=== PATIENT | male | born 1945 | race African-American/Black ===

== ENCOUNTER 2017-02-15 06:15 | Inpatient (IN) | payer MEDICARE, OTHER ==
[~2017-02-15] VITALS: Ht 175.3 cm; Wt 46.1 kg
[~2017-02-15 06:15] MED LIST: AMLO10TA2 PO; DOXY100T PO; GUAI600T47 PO; METO25TA4 PO; PRED-220 PO
--- NOTE | 2017-02-15 06:20 | PHYS DOC ---
Past Medical History Past Medical History: Other Additional Past Medical Histor: throat cancer Past Surgical History: Other Additional Past Surgical Histo: trach Alcohol Use: None Drug Use: None Adult General Chief Complaint Chief Complaint: SHORTNESS OF BREATH HPI HPI Patient is a 71 year old -Mauritanian male who presents with trouble swallowing and pain in his mouth. She's been going on for last 2 days. He states his gets radiation therapy every Monday. He states his radiation appointment this Monday with a reassess determine if he needs more. 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 He has a trach and he states he's also feel short of breath that she started this morning. At his long-term they gave him albuterol treatments. He denies any fevers chills nausea or vomiting. He states he's not been eating and drinking much secondary to his difficulties swallowing. He states he's a full code. Review of Systems Review of Systems Constitutional: Denies fever or chills [] Eyes: Denies change in visual acuity, redness, or eye pain [] HENT: Denies nasal congestion or sore throat [] Respiratory: Positive for shortness of breath [] Cardiovascular: No additional information not addressed in HPI [] GI: Denies abdominal pain, nausea, vomiting, bloody stools or diarrhea [] : Denies dysuria or hematuria [] Musculoskeletal: Denies back pain or joint pain [] Integument: Denies rash or skin lesions [] Neurologic: Denies headache, focal weakness or sensory changes [] Endocrine: Denies polyuria or polydipsia [] Current Medications Current Medications Current Medications Medications (Trade) Dose Ordered Sig/Nick Start Time Stop Time Status Last Admin Dose Admin Ondansetron HCl (Zofran) 4 mg PRN Q8HRS PRN 02/15/17 08:00 02/16/17 07:59 UNV Allergies Allergies Allergies Coded Allergies Type Severity Reaction Last Updated Verified No Known Drug Allergies 01/18/17 No Physical Exam Physical Exam Constitutional: Cachectic appearing, no acute distress, non-toxic appearance. [] HENT: Normocephalic, atraumatic, bilateral external ears normal, oropharynx moist, no oral exudates, nose normal. Tender palpation in the submandibular areas bilaterally, no sores appreciated in the oropharynx Eyes: PERRLA, EOMI, conjunctiva normal, no discharge. [] Neck: Normal range of motion, no tenderness, supple, no stridor, trachea in place Cardiovascular:Heart rate regular rhythm, no murmur [] Lungs & Thorax: Bilateral breath sounds decreased bilaterally Abdomen: Bowel sounds normal, soft, no tenderness, no masses, no pulsatile masses. [] Skin: Warm, dry, no erythema, no rash. [] Back: No tenderness, no CVA tenderness. [] Extremities: No tenderness, no cyanosis, no clubbing, ROM intact, no edema. [] Neurologic: Alert and oriented X 3, normal motor function, normal sensory function, no focal deficits noted. [] Psychologic: Affect normal, judgement normal, mood normal. [] Current Patient Data Vital Signs Vital Signs Date Time Temp Pulse Resp B/P (MAP) Pulse Ox O2 Delivery O2 Flow Rate FiO2 02/15/17 07:30 78 18 156/76 (102) 97 02/15/17 07:00 Room Air 02/15/17 06:17 98.5 98.5 Lab Values Laboratory Tests Test 02/15/17 07:05 02/15/17 07:10 White Blood Count 5.9 x10^3/uL (4.0-11.0) Red Blood Count 4.10 x10^6/uL (4.30-5.70) L Hemoglobin 10.2 g/dL (13.0-17.5) L Hematocrit 31.7 % (39.0-53.0) L Mean Corpuscular Volume 78 fL (79-100) L Mean Corpuscular Hemoglobin 25 pg (25-35) Mean Corpuscular Hemoglobin Concent 32 g/dL (31-37) Red Cell Distribution Width 19.8 % (11.5-14.5) H Platelet Count 339 x10^3/uL (140-400) Neutrophils (%) (Auto) 58 % (31-73) Lymphocytes (%) (Auto) 25 % (24-48) Monocytes (%) (Auto) 15 % (0-9) H Eosinophils (%) (Auto) 3 % (0-3) Basophils (%) (Auto) 1 % (0-3) Neutrophils # (Auto) 3.4 x10^3uL (1.8-7.7) Lymphocytes # (Auto) 1.5 x10^3/uL (1.0-4.8) Monocytes # (Auto) 0.9 x10^3/uL (0.0-1.1) Eosinophils # (Auto) 0.2 x10^3/uL (0.0-0.7) Basophils # (Auto) 0.0 x10^3/uL (0.0-0.2) Sodium Level 138 mmol/L (136-145) Potassium Level 4.3 mmol/L (3.5-5.1) Chloride Level 100 mmol/L (98-107) Carbon Dioxide Level 27 mmol/L (21-32) Anion Gap 11 (6-14) Blood Urea Nitrogen 28 mg/dL (8-26) H Creatinine 1.5 mg/dL (0.7-1.3) H Estimated GFR (Cockcroft-Gault) 56.1 Glucose Level 155 mg/dL (70-99) H Calcium Level 9.3 mg/dL (8.5-10.1) Magnesium Level 1.7 mg/dL (1.8-2.4) L Total Bilirubin 0.4 mg/dL (0.2-1.0) Direct Bilirubin 0.2 mg/dL (0.0-0.2) Aspartate Amino Transferase (AST) 21 U/L (15-37) Alanine Aminotransferase (ALT) 16 U/L (16-63) Alkaline Phosphatase 158 U/L (46-116) H Creatine Kinase 120 U/L (39-308) Creatine Kinase MB (Mass) 1.1 ng/mL (0.0-3.6) Creatine Kinase MB Relative Index 0.9 % (0-4) Troponin I Quantitative 0.026 ng/mL (0.000-0.055) JG-Flf-J-Type Natriuretic Peptide 5521 pg/mL (0-124) H Total Protein 7.7 g/dL (6.4-8.2) Albumin 2.8 g/dL (3.4-5.0) L Urine Collection Type Unknown Urine Color Yellow Urine Clarity Clear Urine pH 6.5 Urine Specific Prather 1.015 Urine Protein >=300 mg/dL (NEG-TRACE) Urine Glucose (UA) Negative mg/dL (NEG) Urine Ketones (Stick) Negative mg/dL (NEG) Urine Blood Trace (NEG) Urine Nitrite Negative (NEG) Urine Bilirubin Negative (NEG) Urine Urobilinogen Dipstick 1.0 mg/dL (0.2 mg/dL) Urine Leukocyte Esterase Negative (NEG) Urine RBC Occ /HPF (0-2) Urine WBC 1-4 /HPF (0-4) Urine Squamous Epithelial Cells Occ /LPF Urine Bacteria Pending Laboratory Tests 02/15/17 07:05 Laboratory Tests 02/15/17 07:05 EKG EKG EKG shows sinus rhythm with rate of [address] elevations or concerning T-wave inversions, left axis deviation noted, QTC 442 ms, as interpreted by me. Radiology/Procedures Radiology/Procedures [facility] [address] [place] [address] IMAGING REPORT Signed PATIENT: NICK ORELLANA ACCOUNT: [id number] : 1945 LOCATION: ER AGE: 71 SEX: M EXAM STATUS: REG ER ORD. PHYSICIAN: CHANO HUFF MD REASON: soa PROCEDURE: PORTABLE CHEST 1V EXAM: CHEST 1 VIEW history: Shortness of breath COMPARISON: 01/13/2017 TECHNIQUE: Single portable radiograph of the chest FINDINGS: The cardiac silhouette is unremarkable. The lungs are clear bilaterally. Tracheostomy tube is in place. IMPRESSION: No radiographic evidence of an acute cardiopulmonary process. DICTATED and SIGNED BY: ODALYS PATEL MD DATE: 02/15/17710 CC: CHANO HUFF MD; UNKNOWN PCP NAME ~ Impressions: Shortness breath Dysphagia Metastatic squamous cell of throat Hypertension Course & Med Decision Making Course & Med Decision Making Pertinent Labs and Imaging studies reviewed. (See chart for details) Labs do not show any acute abnormalities, chest x-ray also nonacute. I believe his shortness of breath is secondary to secretions as he is not tachycardic or tachypneic. We had RT come up and do deep suction and they were able to remove some moderate amount of secretions. He's complaining more of not able to swallow foods. He has had a CT scan performed last week and these receiving radiation to his throat every Monday. Spoke with Dr. Mi who wants him AND radiation consult. Patient's agreeable plans being admitted to his time in stable condition. Dragon Disclaimer Dragon Disclaimer This electronic medical record was generated, in whole or in part, using a voice recognition dictation system. Departure Departure Impression: Primary Impression: Dysphagia Disposition: ADMITTED INPATIENT Admitting Physician: Taylor Bradshaw Condition: STABLE Referrals: UNKNOWN PCP NAME (PCP) Problem Qualifiers Primary Impression: Dysphagia Dysphagia type: unspecified Qualified Codes: R13.10 - Dysphagia, unspecified CHANO HUFF MD Feb 15, 2017 06:20
--- NOTE | 2017-02-15 06:40 | EKG ---
[facility] [address] [place] [address] Test Date: 2017-02-15 Test Time: 06:17:26 Pat Name: NICK ORELLAAN Department: Room: Gender: M Director Of Analytics: MALKA : 1945 Requested By: CHANO HUFF Order Number: [id number] Reading MD: Dru Colindres Measurements Intervals [place] Rate: 81 P: 71 OR: 130 QRS: -21 QRSD: 78 T: 64 QT: 380 QTc: 442 Interpretive Statements SINUS RHYTHM LEFTWARD AXIS NON SPECIFIC ST DEPRESSION RI6.01 Unconfirmed report Compared to ECG 01/13/2017 14:14:22 Left-axis deviation now present ST (T wave) deviation now present Electronically Signed On 02-24-2017 12:49:50 CDT by Dru Colindres
[2017-02-15 07:16] LABS: BASO % 1 % (0-3); EOS % 3 % (0-3); HEMATOCRIT 31.7 % (39.0-53.0); HEMOGLOBIN 10.2 g/dL (13.0-17.5); LYMPH # 1.5 x10^3/uL (1.0-4.8); LYMPH % 25 % (24-48); MEAN CORPUSCULAR HEMOGLOBIN 25 pg (25-35); MEAN CORPUSCULAR HGB CONC 32 g/dL (31-37); MEAN CORPUSCULAR VOLUME 78 fL (79-100); MONO % 15 % (0-9); NEUT % 58 % (31-73); PLATELET COUNT 339 x10^3/uL (140-400); RED CELL DISTRIBUTION WIDTH 19.8 % (11.5-14.5); WHITE BLOOD COUNT 5.9 x10^3/uL (4.0-11.0)
--- NOTE | 2017-02-15 07:17 | RAD ---
EXAM: CHEST 1 VIEW history: Shortness of breath COMPARISON: 01/13/2017 TECHNIQUE: Single portable radiograph of the chest FINDINGS: The cardiac silhouette is unremarkable. The lungs are clear bilaterally. Tracheostomy tube is in place. IMPRESSION: No radiographic evidence of an acute cardiopulmonary process.
[2017-02-15 07:32] LABS: CALCIUM 9.3 mg/dL (8.5-10.1); CREATININE 1.5 mg/dL (0.7-1.3); GFR 56.1; POTASSIUM 4.3 mmol/L (3.5-5.1)
[2017-02-15 07:33] LABS: BILIRUBIN,URINE NEGATIVE (NEG); GLUCOSE,URINE NEGATIVE (NEG); NITRITE,URINE NEGATIVE (NEG); PH,URINE 6.5; PROTEIN,URINE >=300 mg/dL (NEG-TRACE)
[2017-02-15 07:38] LABS: ALBUMIN 2.8 g/dL (3.4-5.0); DIRECT BILIRUBIN 0.2 mg/dL (0.0-0.2); MAGNESIUM 1.7 mg/dL (1.8-2.4); TOTAL BILIRUBIN 0.4 mg/dL (0.2-1.0); TOTAL PROTEIN 7.7 g/dL (6.4-8.2)
[2017-02-15 07:45] LABS: RBC,URINE OCC /HPF (0-2); SQUAMOUS EPITHELIAL CELL,UR OCC /LPF
[2017-02-15 07:47] LABS: CKMB MASS 1.1 ng/mL (0.0-3.6)
[2017-02-15] MEDS ORDERED: IV DEXTROSE 5 %-0.45 % NACL 1,000 ML IV ONE (08:00)
[2017-02-15] MEDS ORDERED: ONDANSETRON PF 4 MG/2 ML VIAL. IV PRN (08:00)
[2017-02-15 08:31] LABS: BACTERIA,URINE FEW /HPF (0-FEW)
[2017-02-15 09:20] VITALS: BP 156/88
[2017-02-15 09:21] VITALS: BP 156/88
[2017-02-15 10:33] VITALS: BP 154/85
--- NOTE | 2017-02-15 11:37 | HP ---
ADMIT DATE: 02/15/2017 HISTORY OF PRESENT ILLNESS: The patient is a 71-year-old -Dominican male patient, a resident at [facility], who was brought to the Emergency Room with a complaint of pain in his mouth and difficulty swallowing that has been going on for the last 2 days. He states he gets radiation treatment every Monday and he has radiation appointment this Monday with the plan to reassess whether he needs further treatment. 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 He has a tracheostomy tube and he used to have PEG tube that was removed. He complained also of shortness of breath, started this morning. He denied any fever, chills, nausea or vomiting. He stated that he has not been eating and drinking much secondary to his difficulty swallowing. He continues to be a full code. He was evaluated in the Emergency Room, has had a chest x-ray, which showed no radiographic evidence of an acute cardiopulmonary process. His lab works were all unremarkable and the patient was admitted for further evaluation and treatment. His past medical history is significant for hypertension and poorly differentiated squamous cell carcinoma diagnosed at the [facility] around 06/2016. It was staged at T4N3M1 due to concern for several small pulmonary nodules and extensive adenopathy in the neck. PET scan showed a PET avid left supraglottic mass and also 1 pulmonary nodule that was PET avid. His initial therapy at the OR was 6 weekly cycles of Erbitux, Taxol and carboplatin. He apparently at one point in time elected not to have any further therapy including radiation therapy as it was the palliative situation; however, he was seen at the [facility] and has been receiving radiation therapy every Monday. PAST SURGICAL HISTORY: Significant for tracheostomy tube placement as well as gastrostomy tube placement that was subsequently removed. PAST MEDICAL HISTORY: He apparently has history of depression, posttraumatic stress disorder and seizure disorder. FAMILY HISTORY: Positive for hypertension. SOCIAL HISTORY: He is currently a resident at [facility]. He drinks alcohol occasionally, used to be a smoker and smokes a pack a day. Does not use any drugs. REVIEW OF SYSTEMS: As per history of present illness. MEDICATIONS: He is currently on following medications: Amlodipine besylate 10 mg once a day, Mucinex 600 mg once a day, metoprolol tartrate 25 mg once a day and prednisone 10 mg once a day. PHYSICAL EXAMINATION: GENERAL: On arrival to the Emergency Room, the patient was extremely pale, cachectic, but no jaundice, cyanosis, or thyromegaly. No jugular venous distention. No limb edema. VITAL SIGNS: Her heart rate was 74, blood pressure was 160/77, temperature was 97.7, respiratory rate was 17 and oxygen saturation was 97%. HEAD, EYES, EARS, NOSE AND THROAT: Showed normocephalic, atraumatic. NECK: Supple, with tracheostomy tube, also enlarged left side lymph nodes. HEART: Showed normal first and second heart sounds with no gallop, rub or murmur. CHEST: Shows central trachea, equal bilateral expansion, air entry, vesicular sounds. No crepitation or rhonchi. ABDOMEN: Distended, soft, nontender. No guarding or rigidity. No organomegaly. Hernial orifices intact. Bowel sounds normal. NEUROLOGIC: He was sleepy, but arousable. All cranial nerves intact. EXTREMITIES: He moves extremities without difficulty. He normally ambulates without assistance or assistive devices. LABORATORY DATA: In the Emergency Room showed a serum sodium of 138, potassium 4.3, chloride 100, bicarbonate 27, anion gap of 11, BUN 28, creatinine 1.5, estimated GFR was 56 mL per minute, his glucose 155, calcium was 9.3, magnesium was 1.7. Total bilirubin, AST, ALT were normal. Alkaline phosphatase slightly elevated. His beta natriuretic peptide was 5521. Total protein was 7.7, albumin was 2.8. White cell count was 5900; hemoglobin 10; hematocrit 32; MCV 78 and platelet count of 339,000. His urinalysis was essentially unremarkable. His chest x-ray showed cardiac silhouette which is unremarkable, the lungs are clear bilaterally, tracheostomy tube is in place. 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 Unfortunately, the PEG tube was removed. He is here now complaining of pain in his mouth, difficulty swallowing, has not been able to eat and drink for the last few days because of difficulty swallowing. He also is complaining of shortness of breath. PLAN: My plan is to continue with IV fluid. We will arrange for him to be evaluated by the speech and language pathologist for swallowing evaluation. I will also arrange for him to have a CT scan of the soft tissue of the neck and consult the Radiation Oncology and he might require eventually a placement of another gastrostomy tube for feeding. BLAYNE WAKEFIELD MD DR: SEVERO/marjan JOB#: [id number] / [id number]
--- NOTE | 2017-02-15 11:45 | RAD ---
EXAM: Neck CT without contrast. HISTORY: Difficulty swallowing. TECHNIQUE: Computed tomographic images of the neck were obtained without contrast. One or more of the following individualized dose reduction techniques were utilized for this examination: 1. Automated exposure control. 2. Adjustment of the mA and/or kV according to patient size. 3. Use of iterative reconstruction technique. COMPARISON: 01/18/2017. FINDINGS: There is a heterogeneous mass with areas of internal necrosis within the lateral left neck, measuring approximately 7.7 x 4.4 x 4.1 cm. The margins of this lesion are difficult to assess given the absence of intravenous contrast on this exam. There is destruction of the fascial planes of the lateral left neck and there is overlying skin thickening and stranding within the subcutaneous fat. There are prominent left supraclavicular lymph nodes, the largest of which measures 1.8 cm. There is similar prominent right cervical chain lymph nodes which are nonspecific. There is a tracheostomy device in expected location. There is soft tissue effacement of the right vallecula likely due to the previously demonstrated mass. The margins of this lesion are difficult to assess given the absence of contrast. There is thickening of the vocal cords and periepiglottic stranding which may be due to interval radiation therapy. This nearly completely effaces the airway at the level of the vocal cords. The thyroid gland is unremarkable. There is a 7 mm calcification within the left submandibular gland. The right parotid gland is unremarkable. The aforementioned left neck mass extends to the inferior aspect of the left parotid gland. There is heavily calcified atherosclerotic plaque within the left greater than right carotid bifurcations. There is aortic and aortic arch great vessel atherosclerotic plaque. There is mild pulmonary emphysema. There is a 4 mm noncalcified nodule within the right upper lobe. There is a 7 mm groundglass nodular opacity within the right upper lobe. There is cerebral atrophy. There are areas of hypodensity throughout the cerebral white matter, likely due to chronic small vessel disease. There are calcifications within the globus pallidus bilaterally. There is evidence of lens surgery. There is mild paranasal sinus mucosal thickening. The mastoid air cells are clear. There are degenerative changes throughout the cervical spine, including disc bulges with endplate modeling, osteophytosis and facet and uncovertebral arthropathy. No severe stenosis is seen. No suspicious lytic or sclerotic osseous lesion is seen. IMPRESSION: 1. Soft tissue mass within the right vallecula likely due to known primary malignancy. This is similar compared to the prior study, allowing for limitations on the current exam due to the absence of intravenous contrast. The combination of this finding and new onset thickening of the vocal cords and periepiglottic stranding results in near complete effacement of the airway at the level of the vocal cords. This may be due to interval radiation therapy. There is a tracheostomy device in expected position. 2. 7.7 cm heterogeneous mass with areas of internal necrosis within the left neck, likely due to necrotic metastatic lymphadenopathy. This appears slightly increased compared to the prior study, a component of which may be due to the absence of intravenous contrast on the current exam. 3. Prominent left supraclavicular and right cervical chain lymph nodes, nonspecific and possibly reactive in etiology. PET may be useful to assess the extent of metastatic disease. 4. 4 mm pulmonary nodule within the right upper lobe. The slight interval increase in this lesion compared to the prior study is concerning for a tiny metastasis. There is also been interval increase in a 7 mm groundglass opacity within the right upper lobe which may be postinflammatory, postinfectious or neoplastic in etiology.
--- NOTE | 2017-02-15 12:46 | PDOC ---
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 Previous chemo with initial response followed by palliative radiation at the time of local progression at CT. He received 30 Gy in 10 fx completed 02/10/2017. Resident at [facility]. Admitted now for cough with difficult to manage secretions sore throat and diminished oral intake. Currently somnolent and does not neck and swallowing pain. PE Thin in NAD. Unable to open mouth well for inspection. Neck tracheostomy on place, no stridor. Upper neck skin tanning 5 x 5 cm fixed hard non-tender left neck mass. Abd ok, previous PEG absent. CT today compared to previous CT done here 01/18/2017 Left neck mass 4.5 x 4.5 cm and rt supraglottic mass 2.5 x 3.5 cm both unchanged. CXR Unremarkable CBC ok with Hb 10.2 Chemistries ok with alk p 158 Impression: Locally advanced (and previously metastatic) squamous cell carcinoma of supraglottic larynx He has just completed palliative radiation at the CT. He now has radiation oral cavity mucositis cervical esophagitis. Too early to assess treatment response as he completed treatment only 5 days ago. Recommend: Continue IV fluids. Add IV analgesic therapy prn. Agree with speech path for swallowing assessment. Consider adding nystatin swish and swallow to prophylactically cover for secondary yeast infection if present. He may require replacement of PEG tube and may need hospice support at [place] following [place]. GRANT NICHOLSON MD Feb 15, 2017 12:46
[2017-02-15 14:31] VITALS: BP 158/91
[2017-02-15] MEDS: HEPARIN PF for SUB-Q USE 5,000 UNIT/0.5 ML VIAL. SQ SCH ×2 (15:06→21:13)
[2017-02-15] MEDS: fentaNYL PF VIAL 100 MCG/2 ML VIAL IV PRN (17:10)
[2017-02-15 19:05] VITALS: BP 158/72
[2017-02-15] MEDS: IPRATRPIUM/ALBUTEROL 0.5/2.5MG 3 ML NEBU. NEB SCH (19:05)
[2017-02-15] MEDS ORDERED: ACET500T68 PO (19:14)
[2017-02-15] MEDS ORDERED: INSU100I17 SQ (19:14)
[2017-02-15] MEDS ORDERED: OXYC10TA45 PO (19:14)
[2017-02-15] MEDS ORDERED: DOCU-109 PO (19:14)
[2017-02-15 23:40] VITALS: BP 145/76
--- NOTE | 2017-02-16 00:38 | CONS ---
DATE OF CONSULTATION: 02/15/2017 MEDICAL ONCOLOGY CONSULTATION CONSULTATION REQUESTED BY: Taylor Bradshaw MD REASON FOR CONSULTATION: Laryngeal cancer on radiation therapy, now admitted with dyspnea and dysphagia. HISTORY OF PRESENT ILLNESS: The patient is a 71-year-old -Turkish gentleman who was initially evaluated at the [facility] in May 2016 for dyspnea and a mass in his neck. He was seen by ENT who noted that he had airway compromise from the tumor. A CT scan in May 2016 revealed a mass in the supraglottic larynx extending to the base of the tongue with cervical and supraclavicular adenopathy and bilateral pulmonary nodules consistent with likely metastatic disease. A followup PET CT scan confirmed increased activity in the neck, lung nodules, and bilateral effusions in June 2016. Biopsy of the larynx and base of the tongue in June 2016 revealed squamous cell carcinoma. He was seen by Medical Oncology at the [facility] and he received 6 cycles of chemotherapy with carboplatin, Taxol and cetuximab and he had an excellent response. He had a tracheostomy placement and PEG tube placement at that time. PEG tube was subsequently removed. He was offered radiation therapy, but he declined at that time. He was recently admitted to [facility] in December 2016 and he was noted to have an enlarging mass in the left side of his neck associated with pain. Radiation Oncology was consulted and he was started on radiation therapy. Chemotherapy was not offered due to poor performance status. He is now admitted to the hospital with complaints of dysphagia and dyspnea. Chest x-ray was done that was unremarkable. PAST MEDICAL HISTORY: Remarkable for alcohol abuse, depression, posttraumatic stress disorder, seizures due to alcohol withdrawal, and history of hypertension. SOCIAL HISTORY: He is . He has a history of cigarettes smoking and alcohol abuse. FAMILY HISTORY: Negative for head and neck cancer. REVIEW OF SYSTEMS: A 12-point review of system was performed. Pertinent positives are mentioned in the history of present illness. Rest of the system review is negative. PHYSICAL EXAMINATION: GENERAL APPEARANCE: The patient is a 71-year-old -Turkish gentleman who appears poorly nourished and in no acute cardiorespiratory distress. VITAL SIGNS: Blood pressure 156/88, temperature 97.7. HEAD: Atraumatic, normocephalic. EYES: No icterus. NECK: Supple. Mass noted. CHEST: Bilaterally symmetrical. HEART: S1, S2 normal. ABDOMEN: Soft, nontender. CENTRAL NERVOUS SYSTEM: No focal deficits. MUSCULOSKELETAL: No joint effusions. PSYCHOLOGIC: He has a flat affect. LABORATORY DATA: WBC 5.9, hemoglobin 10.2, platelet count 339. Creatinine 1.5. BNP is 5521, alkaline phosphatase is 158. IMPRESSION AND PLAN: 1. 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 He declined radiation therapy at that time. He had evidence of enlarging mass in the neck in December 2016 and he was started on radiation therapy by Dr. Beavers. Continue radiation treatments. I will consult Dr. Beavers for further evaluation. He is not a candidate for chemotherapy because of poor functional status. 2. Dyspnea. Chest x-ray performed on 02/15/2017 does not reveal any acute cardiomyopathy process. His BNP is elevated. Continue management per Dr. Bradshaw. 3. 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 Await Radiation Oncology consultation. LEONOR BOWERS MD DR: DAVIDE/nts JOB#: [id number] / [id number] WAYNE
[2017-02-16 03:39] VITALS: BP 151/67
[2017-02-16] MEDS: HEPARIN PF for SUB-Q USE 5,000 UNIT/0.5 ML VIAL. SQ SCH ×2 (05:17→14:00)
[2017-02-16 06:52] VITALS: BP 162/91
[2017-02-16 07:04] LABS: BASO % 0 % (0-3); EOS % 1 % (0-3); HEMATOCRIT 31.8 % (39.0-53.0); HEMOGLOBIN 10.3 g/dL (13.0-17.5); LYMPH % 11 % (24-48); MEAN CORPUSCULAR HEMOGLOBIN 25 pg (25-35); MEAN CORPUSCULAR HGB CONC 33 g/dL (31-37); MEAN CORPUSCULAR VOLUME 77 fL (79-100); MONO % 10 % (0-9); NEUT % 78 % (31-73); PLATELET COUNT 337 x10^3/uL (140-400); RED BLOOD COUNT 4.15 x10^6/uL (4.30-5.70); WHITE BLOOD COUNT 9.2 x10^3/uL (4.0-11.0)
[2017-02-16 07:05] LABS: ALBUMIN 2.5 g/dL (3.4-5.0); ALBUMIN/GLOBULIN RATIO 0.5 (1.0-1.7); CALCIUM 9.1 mg/dL (8.5-10.1); CREATININE 1.3 mg/dL (0.7-1.3); GFR 66.2; TOTAL BILIRUBIN 0.6 mg/dL (0.2-1.0); TOTAL PROTEIN 7.9 g/dL (6.4-8.2)
[2017-02-16] MEDS: IPRATRPIUM/ALBUTEROL 0.5/2.5MG 3 ML NEBU. NEB SCH ×4 (07:42→20:14)
[2017-02-16 11:05] VITALS: BP 163/79
--- NOTE | 2017-02-16 12:45 | CONS ---
DATE OF CONSULTATION: 02/15/2017 REFERRING PHYSICIAN: Dr. Taylor Bradshaw. 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 In the past, he had 6 cycles of carboplatin and Taxol at the [facility] with rituximab and had an excellent response with resolution of his disease. Prior to initiating chemotherapy, he had a PEG tube placement. He then developed local disease progression and underwent 30 Gy of palliative radiation therapy to the neck and primary site region at the [facility] completed on 02/10/2017. He has now been admitted from his fdc as a result of mouth and swallowing pain and difficulty with secretions. Following treatment with systemic treatment and excellent treatment response, his PEG tube was removed. At diagnosis, he has had tracheostomy placement, which remains present to this time. He is currently minimally conversant and lethargic, but does complain of oral cavity and throat and swallowing pain. He was transferred from the [facility] to the Emergency Room here and subsequently admitted for further assessment. Chest x-ray on admission revealed no acute cardiovascular findings with specifically no evidence for metastatic disease. CBC on admission included a hemoglobin of 10.2, white count of 5900, platelet count of 339,000. Chemistry panel was within normal limits with an alkaline phosphatase of 158. Following admission, he did undergo a CT scan, which I have reviewed and compared to the previous CT scan obtained here on 01/18/2017. Left neck adenopathy was unchanged in size and measured approximately 4.5 x 4.5 cm. Right supraglottic mass remained unchanged in size measuring 2.5 x 3.5 cm. No new findings were noted. Currently, he is receiving IV fluids with a plan to undergo swallowing assessment by speech pathology and supportive care. PAST MEDICAL HISTORY: Remarkable for alcohol abuse, posttraumatic stress disorder, depression, previous alcohol withdrawal seizures in the past, hypertension. FAMILY HISTORY: Not obtained. ALLERGIES: No known allergies. MEDICATIONS: Prior to admission included amlodipine, Mucinex, metoprolol, prednisone. SOCIAL HISTORY: for many years, one 50-year-old daughter living in [place]. He worked in the , saw action in [place] and has a prior history of significant alcohol and tobacco use. PHYSICAL EXAMINATION: GENERAL: Revealed subdued, somewhat somnolent gentleman appearing older than his chronologic age. He was unable to open his mouth well for careful inspection. LYMPH NODES: He had a fixed 5 x 5 cm left upper neck hard mass consistent with unchanged adenopathy, surrounding this was some tanning of the skin with no desquamation or peeling. He had no inferior left cervical or right cervical or supraclavicular adenopathy elsewhere. Tracheostomy was in place and functioning well. ABDOMEN: Unremarkable. PEG tube was absent. EXTREMITIES: Revealed no clubbing, cyanosis or edema. NEUROLOGIC: He had no focal neurologic deficits. ASSESSMENT AND PLAN: In summary, my impression is that of stage IV (T4N3M1) squamous cell carcinoma of the supraglottic larynx, initial chemotherapy provided excellent treatment response. Following this, he had local disease relapse and has recently completed palliative radiation to 30 Gy in 10 fractions completed on 02/10/2017 at the [facility] in [place], [place]. He is now admitted with acute oral cavity mucositis and esophagitis by history, which is common following treatment at this site. I recommend ongoing IV fluid support, IV pain medication as needed. Speech pathology evaluation is scheduled for swallowing assessment once he is awake. It may be rational to add prophylactic nystatin swish and swallow to cover for any secondary candidal infection. Depending on his status over the next days ahead, replacement of the PEG tube may be a consideration to give him chronic nutritional and hydration support. Following stabilization, there may be a role for hospice support on discharge to his fdc as well. I did not see a role for additional radiation as he has had only 1 week since completing treatment and it is premature to assess for treatment response at this time. Thank you for allowing us to participate in his evaluation. We will continue to follow him along during his hospitalization here. GRANT NICHOLSON MD DR: CHI/marjan JOB#: [id number] / [id number] Jose Yen VINAY MD
--- NOTE | 2017-02-16 14:32 | PDOC2 ---
GI CONSULT Reason For Consult: PEG HPI: HPI: 71 y/o male w/ Stage IV SCC of larynx w/ lymph node involvement and lung mets diagnosed in 06/2016, s/p chemo w/ local disease relapse and then palliative radiation, tracheostomy, and previous PEG placement/removal. Admitted now from [facility] w/ mouth pain and difficulty swallowing. We have been asked to see re: possible PEG placement. He tells me swallowing issues have been bothersome for 3-4 days - can't get anything down. PMH: PMH: per chart and HPI - alcohol abuse/withdrawal seizures, PTSD, depression, HTN FH: Family History: No pertinent hx Social History: Smoke: Quit ALCOHOL: other Drugs: None ROS: GEN: Denies fevers, chills, sweats HEENT: +mouth and throat pain CV: Denies chest pain RESP: +SOA GI: Per HPI : Denies dysuria ENDO: +weight loss NEURO: Denies dizziness MSK: +weakness SKIN: Denies rash Vitals: Vitals: Vital Signs Date Time Temp Pulse Resp B/P (MAP) Pulse Ox O2 Delivery O2 Flow Rate FiO2 02/16/17 11:46 Room Air 02/16/17 11:05 98.4 83 17 163/79 (107) 98 98.4 Labs: Labs: Laboratory Tests Test 02/15/17 17:35 02/15/17 19:05 02/16/17 05:00 Nasal Screen MRSA (PCR) Positive (Negative) Troponin I Quantitative 0.029 ng/mL (0.000-0.055) White Blood Count 9.2 x10^3/uL (4.0-11.0) Red Blood Count 4.15 x10^6/uL (4.30-5.70) Hemoglobin 10.3 g/dL (13.0-17.5) Hematocrit 31.8 % (39.0-53.0) Mean Corpuscular Volume 77 fL (79-100) Mean Corpuscular Hemoglobin 25 pg (25-35) Mean Corpuscular Hemoglobin Concent 33 g/dL (31-37) Red Cell Distribution Width 19.0 % (11.5-14.5) Platelet Count 337 x10^3/uL (140-400) Neutrophils (%) (Auto) 78 % (31-73) Lymphocytes (%) (Auto) 11 % (24-48) Monocytes (%) (Auto) 10 % (0-9) Eosinophils (%) (Auto) 1 % (0-3) Basophils (%) (Auto) 0 % (0-3) Neutrophils # (Auto) 7.1 x10^3uL (1.8-7.7) Lymphocytes # (Auto) 1.0 x10^3/uL (1.0-4.8) Monocytes # (Auto) 0.9 x10^3/uL (0.0-1.1) Eosinophils # (Auto) 0.1 x10^3/uL (0.0-0.7) Basophils # (Auto) 0.0 x10^3/uL (0.0-0.2) Sodium Level 134 mmol/L (136-145) Potassium Level 4.0 mmol/L (3.5-5.1) Chloride Level 99 mmol/L (98-107) Carbon Dioxide Level 25 mmol/L (21-32) Anion Gap 10 (6-14) Blood Urea Nitrogen 16 mg/dL (8-26) Creatinine 1.3 mg/dL (0.7-1.3) Estimated GFR (Cockcroft-Gault) 66.2 BUN/Creatinine Ratio 12 (6-20) Glucose Level 117 mg/dL (70-99) Calcium Level 9.1 mg/dL (8.5-10.1) Total Bilirubin 0.6 mg/dL (0.2-1.0) Aspartate Amino Transf (AST/SGOT) 17 U/L (15-37) Alanine Aminotransferase (ALT/SGPT) 17 U/L (16-63) Alkaline Phosphatase 141 U/L (46-116) Total Protein 7.9 g/dL (6.4-8.2) Albumin 2.5 g/dL (3.4-5.0) Albumin/Globulin Ratio 0.5 (1.0-1.7) Allergies: Coded Allergies: I S O L A T I O N *CONTACT* (Verified Allergy, Unknown, 02/16/17) mrsa No Known Medication Allergies (Verified Allergy, Unknown, 02/16/17) Medications: Current Medications Medications (Trade) Dose Ordered Sig/Nick Route PRN Reason Start Time Stop Time Status Last Admin Dose Admin Albuterol/ Ipratropium (Duoneb) 3 ml RTQID NEB 02/15/17 16:00 02/16/17 11:46 Fentanyl Citrate (Fentanyl 2ml Vial) 50 mcg Q3HRS PRN IV PAIN 02/15/17 15:30 02/15/17 17:10 Imaging: Imaging: CXR 02/14/17 IMPRESSION: No radiographic evidence of an acute cardiopulmonary process. Soft Tissue Neck CT IMPRESSION: 1. Soft tissue mass within the right vallecula likely due to known primary malignancy. This is similar compared to the prior study, allowing for limitations on the current exam due to the absence of intravenous contrast. The combination of this finding and new onset thickening of the vocal cords and periepiglottic stranding results in near complete effacement of the airway at the level of the vocal cords. This may be due to interval radiation therapy. There is a tracheostomy device in expected position. 2. 7.7 cm heterogeneous mass with areas of internal necrosis within the left neck, likely due to necrotic metastatic lymphadenopathy. This appears slightly increased compared to the prior study, a component of which may be due to the absence of intravenous contrast on the current exam. 3. Prominent left supraclavicular and right cervical chain lymph nodes, nonspecific and possibly reactive in etiology. PET may be useful to assess the extent of metastatic disease. 4. 4 mm pulmonary nodule within the right upper lobe. The slight interval increase in this lesion compared to the prior study is concerning for a tiny metastasis. There is also been interval increase in a 7 mm groundglass opacity within the right upper lobe which may be postinflammatory, postinfectious or neoplastic in etiology. PE: GEN: thin HEENT: trach LUNGS: coarse HEART: RRR ABD: NABS, S/ND/NT EXTREMITY: No edema SKIN: No rashes, no jaundice NEURO/PSYCH: A & O 3, quiet A/P: A/P: Stage IV SCC of larynx w/ mets S/p tracheostomy H/o PEG placement, now removed Dysphagia -- ?attempt endoscopic PEG placement vs percutaneous placement by [facility] - Dr. Young to see this afternoon. SHA CORDERO Feb 16, 2017 14:32
[2017-02-16 14:49] VITALS: BP 162/84
--- NOTE | 2017-02-16 15:09 | PDOC ---
PROGRESS NOTES Subjective Subjective HPI - f/u of T4N3M1 stage 4 squamous cell carcinoma of the supraglottic larynx ROS - has dysphagia Objective Objective Vital Signs Date Time Temp Pulse Resp B/P (MAP) Pulse Ox O2 Delivery O2 Flow Rate FiO2 02/16/17 14:49 99.1 87 16 162/84 (110) 96 Room Air 99.1 Intake and Output 02/17/17 07:00 Output Total 500 ml Balance -500 ml Output Urine Total 500 ml Physical Exam General: Alert, Oriented X3, No acute distress Psych/Mental Status: Mental status NL Assessment Assessment Problems Medical Problems: (1) Dysphagia Status: Acute IMPRESSION AND PLAN: 1. 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 He declined radiation therapy at that time. He had evidence of enlarging mass in the neck in December 2016 and he was started on radiation therapy by Dr. Beavers. Appreciate consult by Dr. Beavers. He is not a candidate for chemotherapy because of poor functional status. 2. Dyspnea. Chest x-ray performed on 02/15/2017 does not reveal any acute cardiomyopathy process. His BNP is elevated. Continue management per Dr. Bradshaw. 3. 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 Appreciate GI consultation. Comment Review of Relevant I have reviewed the following items rell (where applicable) has been applied. Labs Laboratory Tests Test 02/15/17 07:05 02/15/17 07:10 02/15/17 12:55 02/15/17 17:35 White Blood Count 5.9 x10^3/uL (4.0-11.0) Red Blood Count 4.10 x10^6/uL (4.30-5.70) Hemoglobin 10.2 g/dL (13.0-17.5) Hematocrit 31.7 % (39.0-53.0) Mean Corpuscular Volume 78 fL (79-100) Mean Corpuscular Hemoglobin 25 pg (25-35) Mean Corpuscular Hemoglobin Concent 32 g/dL (31-37) Red Cell Distribution Width 19.8 % (11.5-14.5) Platelet Count 339 x10^3/uL (140-400) Neutrophils (%) (Auto) 58 % (31-73) Lymphocytes (%) (Auto) 25 % (24-48) Monocytes (%) (Auto) 15 % (0-9) Eosinophils (%) (Auto) 3 % (0-3) Basophils (%) (Auto) 1 % (0-3) Neutrophils # (Auto) 3.4 x10^3uL (1.8-7.7) Lymphocytes # (Auto) 1.5 x10^3/uL (1.0-4.8) Monocytes # (Auto) 0.9 x10^3/uL (0.0-1.1) Eosinophils # (Auto) 0.2 x10^3/uL (0.0-0.7) Basophils # (Auto) 0.0 x10^3/uL (0.0-0.2) Sodium Level 138 mmol/L (136-145) Potassium Level 4.3 mmol/L (3.5-5.1) Chloride Level 100 mmol/L (98-107) Carbon Dioxide Level 27 mmol/L (21-32) Anion Gap 11 (6-14) Blood Urea Nitrogen 28 mg/dL (8-26) Creatinine 1.5 mg/dL (0.7-1.3) Estimated GFR (Cockcroft-Gault) 56.1 Glucose Level 155 mg/dL (70-99) Calcium Level 9.3 mg/dL (8.5-10.1) Magnesium Level 1.7 mg/dL (1.8-2.4) Total Bilirubin 0.4 mg/dL (0.2-1.0) Direct Bilirubin 0.2 mg/dL (0.0-0.2) Aspartate Amino Transf (AST/SGOT) 21 U/L (15-37) Alanine Aminotransferase (ALT/SGPT) 16 U/L (16-63) Alkaline Phosphatase 158 U/L (46-116) Creatine Kinase 120 U/L (39-308) Creatine Kinase MB (Mass) 1.1 ng/mL (0.0-3.6) Creatine Kinase MB Relative Index 0.9 % (0-4) Troponin I Quantitative 0.026 ng/mL (0.000-0.055) 0.038 ng/mL (0.000-0.055) HA-Ykc-M-Type Natriuretic Peptide 5521 pg/mL (0-124) Total Protein 7.7 g/dL (6.4-8.2) Albumin 2.8 g/dL (3.4-5.0) Urine Collection Type Unknown Urine Color Yellow Urine Clarity Clear Urine pH 6.5 Urine Specific [place] 1.015 Urine Protein >=300 mg/dL (NEG-TRACE) Urine Glucose (UA) Negative mg/dL (NEG) Urine Ketones (Stick) Negative mg/dL (NEG) Urine Blood Trace (NEG) Urine Nitrite Negative (NEG) Urine Bilirubin Negative (NEG) Urine Urobilinogen Dipstick 1.0 mg/dL (0.2 mg/dL) Urine Leukocyte Esterase Negative (NEG) Urine RBC Occ /HPF (0-2) Urine WBC 1-4 /HPF (0-4) Urine Squamous Epithelial Cells Occ /LPF Urine Bacteria Few /HPF (0-FEW) Nasal Screen MRSA (PCR) Positive (Negative) Test 02/15/17 19:05 02/16/17 05:00 Troponin I Quantitative 0.029 ng/mL (0.000-0.055) White Blood Count 9.2 x10^3/uL (4.0-11.0) Red Blood Count 4.15 x10^6/uL (4.30-5.70) Hemoglobin 10.3 g/dL (13.0-17.5) Hematocrit 31.8 % (39.0-53.0) Mean Corpuscular Volume 77 fL (79-100) Mean Corpuscular Hemoglobin 25 pg (25-35) Mean Corpuscular Hemoglobin Concent 33 g/dL (31-37) Red Cell Distribution Width 19.0 % (11.5-14.5) Platelet Count 337 x10^3/uL (140-400) Neutrophils (%) (Auto) 78 % (31-73) Lymphocytes (%) (Auto) 11 % (24-48) Monocytes (%) (Auto) 10 % (0-9) Eosinophils (%) (Auto) 1 % (0-3) Basophils (%) (Auto) 0 % (0-3) Neutrophils # (Auto) 7.1 x10^3uL (1.8-7.7) Lymphocytes # (Auto) 1.0 x10^3/uL (1.0-4.8) Monocytes # (Auto) 0.9 x10^3/uL (0.0-1.1) Eosinophils # (Auto) 0.1 x10^3/uL (0.0-0.7) Basophils # (Auto) 0.0 x10^3/uL (0.0-0.2) Sodium Level 134 mmol/L (136-145) Potassium Level 4.0 mmol/L (3.5-5.1) Chloride Level 99 mmol/L (98-107) Carbon Dioxide Level 25 mmol/L (21-32) Anion Gap 10 (6-14) Blood Urea Nitrogen 16 mg/dL (8-26) Creatinine 1.3 mg/dL (0.7-1.3) Estimated GFR (Cockcroft-Gault) 66.2 BUN/Creatinine Ratio 12 (6-20) Glucose Level 117 mg/dL (70-99) Calcium Level 9.1 mg/dL (8.5-10.1) Total Bilirubin 0.6 mg/dL (0.2-1.0) Aspartate Amino Transf (AST/SGOT) 17 U/L (15-37) Alanine Aminotransferase (ALT/SGPT) 17 U/L (16-63) Alkaline Phosphatase 141 U/L (46-116) Total Protein 7.9 g/dL (6.4-8.2) Albumin 2.5 g/dL (3.4-5.0) Albumin/Globulin Ratio 0.5 (1.0-1.7) Laboratory Tests Test 02/15/17 17:35 02/15/17 19:05 02/16/17 05:00 Nasal Screen MRSA (PCR) Positive (Negative) Troponin I Quantitative 0.029 ng/mL (0.000-0.055) White Blood Count 9.2 x10^3/uL (4.0-11.0) Red Blood Count 4.15 x10^6/uL (4.30-5.70) Hemoglobin 10.3 g/dL (13.0-17.5) Hematocrit 31.8 % (39.0-53.0) Mean Corpuscular Volume 77 fL (79-100) Mean Corpuscular Hemoglobin 25 pg (25-35) Mean Corpuscular Hemoglobin Concent 33 g/dL (31-37) Red Cell Distribution Width 19.0 % (11.5-14.5) Platelet Count 337 x10^3/uL (140-400) Neutrophils (%) (Auto) 78 % (31-73) Lymphocytes (%) (Auto) 11 % (24-48) Monocytes (%) (Auto) 10 % (0-9) Eosinophils (%) (Auto) 1 % (0-3) Basophils (%) (Auto) 0 % (0-3) Neutrophils # (Auto) 7.1 x10^3uL (1.8-7.7) Lymphocytes # (Auto) 1.0 x10^3/uL (1.0-4.8) Monocytes # (Auto) 0.9 x10^3/uL (0.0-1.1) Eosinophils # (Auto) 0.1 x10^3/uL (0.0-0.7) Basophils # (Auto) 0.0 x10^3/uL (0.0-0.2) Sodium Level 134 mmol/L (136-145) Potassium Level 4.0 mmol/L (3.5-5.1) Chloride Level 99 mmol/L (98-107) Carbon Dioxide Level 25 mmol/L (21-32) Anion Gap 10 (6-14) Blood Urea Nitrogen 16 mg/dL (8-26) Creatinine 1.3 mg/dL (0.7-1.3) Estimated GFR (Cockcroft-Gault) 66.2 BUN/Creatinine Ratio 12 (6-20) Glucose Level 117 mg/dL (70-99) Calcium Level 9.1 mg/dL (8.5-10.1) Total Bilirubin 0.6 mg/dL (0.2-1.0) Aspartate Amino Transf (AST/SGOT) 17 U/L (15-37) Alanine Aminotransferase (ALT/SGPT) 17 U/L (16-63) Alkaline Phosphatase 141 U/L (46-116) Total Protein 7.9 g/dL (6.4-8.2) Albumin 2.5 g/dL (3.4-5.0) Albumin/Globulin Ratio 0.5 (1.0-1.7) Medications Current Medications Ondansetron HCl (Zofran) 4 mg PRN Q8HRS PRN IV NAUSEA/VOMITING; Start 02/15/17 at 08:00; Stop 02/16/17 at 07:59; Status DC Dextrose/Sodium Chloride 1,000 ml @ 75 mls/hr 1X ONCE IV Last administered on 02/15/17 08:31; Start 02/15/17 at 08:00; Stop 02/15/17 at 21:19; Status DC Heparin Sodium (Porcine) (Heparin Sq) 5,000 unit Q8HRS SQ Last administered on 02/16/17 05:17; Start 02/15/17 at 14:00 Albuterol/ Ipratropium (Duoneb) 3 ml RTQID NEB Last administered on 02/16/17 11:46; Start 02/15/17 at 16:00 Fentanyl Citrate (Fentanyl 2ml Vial) 50 mcg Q3HRS PRN IV PAIN Last administered on 02/15/17 17:10; Start 02/15/17 at 15:30 Active Scripts Active Prednisone 10 Mg Tablet 10 Mg PO DAILY Metoprolol Tartrate 25 Mg Tablet 25 Mg PO BID 30 Days Mucinex (Guaifenesin) 600 Mg Tablet.er 1,200 Mg PO BID 7 Days Doxycycline Hyclate 100 Mg Tablet 100 Mg PO BID 5 Days Amlodipine Besylate 10 Mg Tablet 10 Mg PO DAILY 30 Days Reported Acetaminophen 500 Mg Tablet 325 Mg PO PRN Q4HRS PRN Colace (Docusate Sodium) 100 Mg Capsule 100 Mg PO DAILY Novolog Flexpen (Insulin Aspart) 100 Unit/1 Ml Insuln.pen 1 Unit SQ Oxycontin (Oxycodone HCl) 10 Mg Tab.er.12h 10 Mg PO BID Vitals/I & O Vital Sign - Last 24 Hours 02/15/17 02/15/17 02/15/17 02/15/17 17:10 18:00 19:05 19:08 Temp 98.4 98.4 Pulse 74 Resp 20 B/P (MAP) 158/72 (100) Pulse Ox 98 99 O2 Delivery Room Air Room Air Room Air Room Air 02/15/17 02/15/17 02/16/17 02/16/17 20:00 23:40 03:39 06:52 Temp 98.8 98.3 98.4 98.8 98.3 98.4 Pulse 88 84 94 Resp 18 16 18 B/P (MAP) 145/76 (99) 151/67 (95) 162/91 (114) Pulse Ox 96 91 95 O2 Delivery Room Air Room Air Room Air Room Air 02/16/17 02/16/17 02/16/1702/16/17 07:43 11:05 11:46 14:49 Temp 98.4 99.1 98.4 99.1 Pulse 83 87 Resp 17 16 B/P (MAP) 163/79 (107) 162/84 (110) Pulse Ox 98 96 O2 Delivery Room Air Room Air Room Air Room Air Intake and Output 02/16/17 02/16/17 02/17/17 15:00 23:00 07:00 Output Total 500 ml Balance -500 ml Nutrition Consultation Dietary Evaluation: Comments: TF via PEG Expected Outcomes/Goals: to meet nutrition needs via PEG TF Malnutrition Findings: Body Fat Depletion (Non Severe: Mild Depletion Weight Status: Underweight LEONOR BOWERS MD Feb 16, 2017 15:09
--- NOTE | 2017-02-16 15:52 | PDOC ---
Provider Note Provider Note 71 [address] man with advanced [address] IV(T4 N3 M1) squamous cell carcinoma s/p chemo with good response followed a recent course of palliative radiation [facility] No change of dysphagia since admit. GI evaluation for replacement of PEG tube noted, await Dr Young's assessment. Impression: Radiation treatment hypopharyngeal mucousitis and cervical esophagitis. I would add "magic mouth wash" for symptomatic relief, salt and soda gargles for oral hygiene and nystatin for prophylaxis of secondary candidiasis. IV fluids until PEG tube is placed. Discussed with nursing staff and patient. GRANT NICHOLSON MD Feb 16, 2017 15:52
[2017-02-16] MEDS ORDERED: LIDO:MAALOX:BENADRYL 1:1:1 180 ML BOTTLE. PO PRN (16:00)
[2017-02-16] MEDS: NYSTATIN 100,000 UNITS/ML 5 ML ORAL.SUSP. SWSW SCH ×2 (16:05→20:15)
[2017-02-16] MEDS: IV DEXTROSE 5 %-0.45 % NACL 1,000 ML IV SCH (16:19)
[2017-02-16 17:17] LABS: PROTHROMBIN TIME PATIENT 12.9 SEC (11.7-14.0)
[2017-02-16 19:05] VITALS: BP 167/85
[2017-02-16] MEDS: fentaNYL PF VIAL 100 MCG/2 ML VIAL IV PRN (20:17)
[2017-02-16 23:05] VITALS: BP 176/84
[2017-02-17 03:05] VITALS: BP 160/81
--- NOTE | 2017-02-17 04:29 | PN ---
DATE: 02/16/2017 SUBJECTIVE: The patient is resting slightly propped up in bed, in no apparent distress. He continues to complain of difficulty swallowing even with own oral secretion. He is also complaining of pain. The speech therapist came and she did not recommend doing any further evaluation and patient agreed to placement of percutaneous endoscopic gastrostomy tube. Palliative and hospice care was offered before and he declined. PHYSICAL EXAMINATION: GENERAL: When I examined him today, he looked well and was clearly in no apparent respiratory distress, pale, cachectic. No jaundice, cyanosis, or thyromegaly. No jugular venous distension. No limb edema. VITAL SIGNS: Her heart rate was 94, blood pressure 162/91, temperature was 98.4, respiratory rate was 18 and oxygen saturation was 95%. HEAD, EYES, EARS, NOSE AND THROAT: Showed normocephalic, atraumatic. NECK: Supple with tracheostomy tube in place. He has also a large mass in the left side of the neck. HEART: Showed normal first and second heart sounds with no gallop, rub or murmur. CHEST: Clear to auscultation. No crepitation or rhonchi. ABDOMEN: Distended, soft, nontender. No guarding or rigidity. No organomegaly with hernial orifices intact. Bowel sounds normal. NEUROLOGIC: He is awake, alert, responding appropriately. Cranial nerves intact. He moves extremities without difficulty, although he has marked muscle wasting and weakness. LABORATORY DATA: His lab work this morning showed a white cell count 9200, hemoglobin 10, hematocrit 32, MCV 77, and platelet count of ____. His chemistry showed a serum sodium 134, potassium 4, chloride 99, bicarbonate 25, BUN 10, creatinine 1.3, estimated GFR was 66 mL per minute. His total bilirubin, AST, ALT, alkaline phosphatase are normal. Total protein 7.9, albumin 2.5. ASSESSMENT AND PLAN: 1. Dysphagia due to radiation therapy. 2. Dyspnea. Chest x-ray is normal. The patient is not hypoxic, not tachycardic. 3. T4N3M1 stage IV squamous cell carcinoma of supraglottic larynx, diagnosed in 06/2016. My plan is to consult the gastroenterology for placement of a percutaneous endoscopic gastrostomy tube. BLAYNE WAKEFIELD MD DR: SEVERO/marjan JOB#: [id number] / [id number]
[2017-02-17 04:52] LABS: INR 1.1 (0.8-1.1); PROTHROMBIN TIME PATIENT 13.2 SEC (11.7-14.0)
[2017-02-17] MEDS: IV DEXTROSE 5 %-0.45 % NACL 1,000 ML IV SCH ×2 (05:05→19:49)
[2017-02-17 07:00] VITALS: BP 153/73
[2017-02-17] MEDS: IPRATRPIUM/ALBUTEROL 0.5/2.5MG 3 ML NEBU. NEB SCH ×4 (07:33→19:31)
[2017-02-17] MEDS ORDERED: IV RINGERS,LACTATED 1000ML 1,000 ML IV SCH (07:47)
[2017-02-17] MEDS: NYSTATIN 100,000 UNITS/ML 5 ML ORAL.SUSP. SWSW SCH ×4 (08:43→19:46)
[2017-02-17 11:00] VITALS: BP 162/88
[2017-02-17] MEDS: fentaNYL PF VIAL 100 MCG/2 ML VIAL IV PRN (11:02)
--- NOTE | 2017-02-17 12:22 | PDOC ---
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 He declined radiation therapy at that time. He had evidence of enlarging mass in the neck in December 2016 and he was started on radiation therapy by Dr. Beavers. Appreciate consult by Dr. Beavers. He is not a candidate for chemotherapy because of poor functional status. I garee with hospice after palliative XRT. 2. Dyspnea. Chest x-ray performed on 02/15/2017 does not reveal any acute cardiopulm process. His BNP is elevated. Continue management per Dr. Bradshaw. 3. 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 Appreciate GI consultation. Comment Review of Relevant I have reviewed the following items rell (where applicable) has been applied. Labs Laboratory Tests Test 02/15/17 12:55 02/15/17 17:35 02/15/17 19:05 02/16/17 05:00 Troponin I Quantitative 0.038 ng/mL (0.000-0.055) 0.029 ng/mL (0.000-0.055) Nasal Screen MRSA (PCR) Positive (Negative) White Blood Count 9.2 x10^3/uL (4.0-11.0) Red Blood Count 4.15 x10^6/uL (4.30-5.70) Hemoglobin 10.3 g/dL (13.0-17.5) Hematocrit 31.8 % (39.0-53.0) Mean Corpuscular Volume 77 fL (79-100) Mean Corpuscular Hemoglobin 25 pg (25-35) Mean Corpuscular Hemoglobin Concent 33 g/dL (31-37) Red Cell Distribution Width 19.0 % (11.5-14.5) Platelet Count 337 x10^3/uL (140-400) Neutrophils (%) (Auto) 78 % (31-73) Lymphocytes (%) (Auto) 11 % (24-48) Monocytes (%) (Auto) 10 % (0-9) Eosinophils (%) (Auto) 1 % (0-3) Basophils (%) (Auto) 0 % (0-3) Neutrophils # (Auto) 7.1 x10^3uL (1.8-7.7) Lymphocytes # (Auto) 1.0 x10^3/uL (1.0-4.8) Monocytes # (Auto) 0.9 x10^3/uL (0.0-1.1) Eosinophils # (Auto) 0.1 x10^3/uL (0.0-0.7) Basophils # (Auto) 0.0 x10^3/uL (0.0-0.2) Sodium Level 134 mmol/L (136-145) Potassium Level 4.0 mmol/L (3.5-5.1) Chloride Level 99 mmol/L (98-107) Carbon Dioxide Level 25 mmol/L (21-32) Anion Gap 10 (6-14) Blood Urea Nitrogen 16 mg/dL (8-26) Creatinine 1.3 mg/dL (0.7-1.3) Estimated GFR (Cockcroft-Gault) 66.2 BUN/Creatinine Ratio 12 (6-20) Glucose Level 117 mg/dL (70-99) Calcium Level 9.1 mg/dL (8.5-10.1) Total Bilirubin 0.6 mg/dL (0.2-1.0) Aspartate Amino Transf (AST/SGOT) 17 U/L (15-37) Alanine Aminotransferase (ALT/SGPT) 17 U/L (16-63) Alkaline Phosphatase 141 U/L (46-116) Total Protein 7.9 g/dL (6.4-8.2) Albumin 2.5 g/dL (3.4-5.0) Albumin/Globulin Ratio 0.5 (1.0-1.7) Test 02/16/17 16:55 02/17/17 03:35 Prothrombin Time 12.9 SEC (11.7-14.0) 13.2 SEC (11.7-14.0) Prothromb Time International Ratio 1.0 (0.8-1.1) 1.1 (0.8-1.1) Activated Partial Thromboplast Time 42 SEC (24-38) Laboratory Tests Test 02/16/17 16:55 02/17/17 03:35 Prothrombin Time 12.9 SEC (11.7-14.0) 13.2 SEC (11.7-14.0) Prothromb Time International Ratio 1.0 (0.8-1.1) 1.1 (0.8-1.1) Activated Partial Thromboplast Time 42 SEC (24-38) Medications Current Medications Ondansetron HCl (Zofran) 4 mg PRN Q8HRS PRN IV NAUSEA/VOMITING; Start 02/15/17 at 08:00; Stop 02/16/17 at 07:59; Status DC Dextrose/Sodium Chloride 1,000 ml @ 75 mls/hr 1X ONCE IV Last administered on 02/15/17 08:31; Start 02/15/17 at 08:00; Stop 02/15/17 at 21:19; Status DC Heparin Sodium (Porcine) (Heparin Sq) 5,000 unit Q8HRS SQ Last administered on 02/16/17 05:17; Start 02/15/17 at 14:00; Status Future hold Albuterol/ Ipratropium (Duoneb) 3 ml RTQID NEB Last administered on 02/17/17 11:48; Start 02/15/17 at 16:00 Fentanyl Citrate (Fentanyl 2ml Vial) 50 mcg Q3HRS PRN IV PAIN Last administered on 02/17/17 11:02; Start 02/15/17 at 15:30 Dextrose/Sodium Chloride 1,000 ml @ 75 mls/hr [id number] IV Last administered on 02/17/17 05:05; Start 02/16/17 at 15:45 Multi-Ingredient Mouthwash/Gargle (Magic Mouthwash) 10 ml PRN QID PRN PO MOUTH PAIN; Start 02/16/17 at 16:00 Nystatin 5 ml [id number] Last administered on 02/16/17 20:15; Start at 17:00 Levofloxacin/ Dextrose 100 ml @ 100 mls/hr 1X ONCE IV ; Start 02/17/17 at 12: 00; Stop 02/17/17 at 12:59 Ringer's Solution 1,000 ml @ 50 mls/hr Q20H IV ; Start 02/17/17 at 07:47; Stop 02/17/17 at 19:46 Active Scripts Active Prednisone 10 Mg Tablet 10 Mg PO DAILY Metoprolol Tartrate 25 Mg Tablet 25 Mg PO BID 30 Days Mucinex (Guaifenesin) 600 Mg Tablet.er 1,200 Mg PO BID 7 Days Doxycycline Hyclate 100 Mg Tablet 100 Mg PO BID 5 Days Amlodipine Besylate 10 Mg Tablet 10 Mg PO DAILY 30 Days Reported Acetaminophen 500 Mg Tablet 325 Mg PO PRN Q4HRS PRN Colace (Docusate Sodium) 100 Mg Capsule 100 Mg PO DAILY Novolog Flexpen (Insulin Aspart) 100 Unit/1 Ml Insuln.pen 1 Unit SQ Oxycontin (Oxycodone HCl) 10 Mg Tab.er.12h 10 Mg PO BID Vitals/I & O Vital Sign - Last 24 Hours 02/16/17 02/16/17 02/16/17 02/16/17 14:49 15:43 19:05 20:00 Temp 99.1 98.9 99.1 98.9 Pulse 87 85 Resp 16 18 B/P (MAP) 162/84 (110) 167/85 (112) Pulse Ox 96 99 O2 Delivery Room Air Room Air Room Air Room Air 02/16/17 02/16/17 02/16/17 02/16/17 20:15 20:17 20:52 23:05 Temp 98.5 98.5 Pulse 86 Resp 20 B/P (MAP) 176/84 (114) Pulse Ox 99 O2 Delivery Room Air Room Air Room Air Room Air 02/17/17 02/17/17 02/17/17 02/17/17 03:05 07:00 07:33 08:00 Temp 98.3 97.3 98.3 97.3 Pulse 85 82 Resp 20 20 B/P (MAP) 160/81 (107) 153/73 (99) Pulse Ox 94 98 100 O2 Delivery Room Air Room Air Room Air Room Air 02/17/17 02/17/17 02/17/17 11:00 11:02 11:48 Temp 97.5 97.5 Pulse 85 Resp 20 B/P (MAP) 162/88 (112) Pulse Ox 100 100 O2 Delivery Room Air Room Air Room Air Nutrition Consultation Dietary Evaluation: Comments: TF via PEG Expected Outcomes/Goals: to meet nutrition needs via PEG TF Malnutrition Findings: Body Fat Depletion (Non Severe: Mild Depletion Weight Status: Underweight LEONOR BOWERS MD Feb 17, 2017 12:22
[2017-02-17] MEDS ORDERED: PROPOFOL 20 ML IV ONE (15:39)
[2017-02-17] MEDS ORDERED: LIDOCAINE 2% PF Vial for OR 5 ML VIAL. ONE (15:39)
--- NOTE | 2017-02-17 16:06 | PDOC4 ---
PROCEDURE Procedure EGD/PEG Indication: laryngeal cancer, recurrent. Esophageal impingement. Meds: per anesthesia. Findings: E--able to intubate with some difficulty. Esophagus normal. Too crowded in pharynx to appreciate mass per se. G--Normal D--Normal bulb. --20F g-tube placed in old tract. Tolerated well. IMP: successful PEG Laryngeal tumor. REC: OK to use tube immediately as in old tract and should not leak. Thanks. SERENITY MOORE MD Feb 17, 2017 16:06
[2017-02-17] MEDS ORDERED: fentaNYL PF VIAL 100 MCG/2 ML VIAL ONE (16:14)
[2017-02-17 16:40] VITALS: BP 174/94
[2017-02-17] MEDS ORDERED: hydrALAZINE 20 MG/ML VIAL. IVP PRN (18:30)
[2017-02-17 19:00] VITALS: BP 171/86
[2017-02-17 23:00] VITALS: BP 165/85
--- NOTE | 2017-02-18 02:23 | PN ---
DATE: 02/17/2017 SUBJECTIVE: The patient is resting flat, comfortably in bed, in no apparent distress. He continues to complain of pain in his neck and difficulty swallowing. He denies any chest pain, shortness of breath. He is scheduled for percutaneous endoscopic gastrostomy tube placement this afternoon. PHYSICAL EXAMINATION: GENERAL: When I examined him, he looked pale, cachectic, but not jaundiced, cyanosis, or thyromegaly. No jugular venous distension. No limb edema. VITAL SIGNS: His heart rate was 82, blood pressure was 153/73, temperature was 97.3, respiratory rate was 20, and oxygen saturation was 98%. HEAD, EYES, EARS, NOSE AND THROAT: Showed normocephalic, atraumatic. NECK: Supple. HEART: Showed normal first and second heart sounds with no gallop, rub or murmur. CHEST: Clear to auscultation. No crepitation or rhonchi. ABDOMEN: Distended, soft, nontender. NEUROLOGIC: He is awake, alert. All cranial nerves intact. He moves extremities without difficulty. He has marked muscle wasting and weakness. His intake over the last 24 hours was incompletely recorded. LABORATORY WORK: Showed a hemoglobin of 10, hematocrit 32 with normal white cell count and platelets. His chemistry showed a BUN of 16, creatinine 1.3. His prothrombin time was 13.2, INR 1.1, and aPTT was 42. ASSESSMENT: 1. Dysphagia due to radiation therapy. 2. Dyspnea, however, chest x-ray is normal. The patient is hypoxia, is lying flat, stage 4 squamous cell carcinoma with supraglottic larynx diagnosed in 2017. PLAN: To proceed with the PEG tube placement. We will obviously be able to start him on tube feeding tomorrow and also pain medication and if he is stable, he can be discharged back to [facility]. BLAYNE WAKEFIELD MD DR: SEVERO/marjan JOB#: [id number] / [id number]
[2017-02-18 03:00] VITALS: BP 165/84
[2017-02-18 05:07] LABS: CALCIUM 9.1 mg/dL (8.5-10.1); CREATININE 1.2 mg/dL (0.7-1.3); GFR 72.6; POTASSIUM 3.7 mmol/L (3.5-5.1)
[2017-02-18 07:00] VITALS: BP 169/97
[2017-02-18] MEDS: IPRATRPIUM/ALBUTEROL 0.5/2.5MG 3 ML NEBU. NEB SCH ×4 (08:22→19:35)
[2017-02-18] MEDS: IV DEXTROSE 5 %-0.45 % NACL 1,000 ML IV SCH (08:28)
[2017-02-18] MEDS: NYSTATIN 100,000 UNITS/ML 5 ML ORAL.SUSP. SWSW SCH ×4 (08:30→20:46)
[2017-02-18] MEDS: fentaNYL PF VIAL 100 MCG/2 ML VIAL IV PRN (08:44)
[2017-02-18 10:40] VITALS: BP 165/89
[2017-02-18] MEDS ORDERED: METOCLOPRAMIDE HCL 10 MG/10 ML SOLUTION. PO PRN (10:45)
--- NOTE | 2017-02-18 12:34 | PDOC ---
G I PROGRESS NOTE Reason for Follow-up Oropharyngeal dysphagia S/p PEG change Subjective Tolerating feedings Physical Exam Lungs decreased BS CV S1 S2 ABD +BS, soft, PEG intact Review of Relevant I have reviewed the following items rell (where applicable) has been applied. Labs Laboratory Tests Test 02/16/17 16:55 02/17/17 03:35 02/18/17 04:10 02/18/17 06:51 Prothrombin Time 12.9 SEC (11.7-14.0) 13.2 SEC (11.7-14.0) Prothromb Time International Ratio 1.0 (0.8-1.1) 1.1 (0.8-1.1) Activated Partial Thromboplast Time 42 SEC (24-38) Sodium Level 131 mmol/L (136-145) Potassium Level 3.7 mmol/L (3.5-5.1) Chloride Level 97 mmol/L (98-107) Carbon Dioxide Level 26 mmol/L (21-32) Anion Gap 8 (6-14) Blood Urea Nitrogen 10 mg/dL (8-26) Creatinine 1.2 mg/dL (0.7-1.3) Estimated GFR (Cockcroft-Gault) 72.6 Glucose Level 198 mg/dL (70-99) Calcium Level 9.1 mg/dL (8.5-10.1) Glucose (Fingerstick) 178 mg/dL (70-99) Laboratory Tests Test 02/18/17 04:10 02/18/17 06:51 Sodium Level 131 mmol/L (136-145) Potassium Level 3.7 mmol/L (3.5-5.1) Chloride Level 97 mmol/L (98-107) Carbon Dioxide Level 26 mmol/L (21-32) Anion Gap 8 (6-14) Blood Urea Nitrogen 10 mg/dL (8-26) Creatinine 1.2 mg/dL (0.7-1.3) Estimated GFR (Cockcroft-Gault) 72.6 Glucose Level 198 mg/dL (70-99) Calcium Level 9.1 mg/dL (8.5-10.1) Glucose (Fingerstick) 178 mg/dL (70-99) Medications Current Medications Ondansetron HCl (Zofran) 4 mg PRN Q8HRS PRN IV NAUSEA/VOMITING; Start 02/15/17 at 08:00; Stop 02/16/17 at 07:59; Status DC Dextrose/Sodium Chloride 1,000 ml @ 75 mls/hr 1X ONCE IV Last administered on 02/15/17 08:31; Start 02/15/17 at 08:00; Stop 02/15/17 at 21:19; Status DC Heparin Sodium (Porcine) (Heparin Sq) 5,000 unit Q8HRS SQ Last administered on 02/16/17 05:17; Start 02/15/17 at 14:00; Status Future hold Albuterol/ Ipratropium (Duoneb) 3 ml RTQID NEB Last administered on 02/18/17 10:56; Start 02/15/17 at 16:00 Fentanyl Citrate (Fentanyl 2ml Vial) 50 mcg Q3HRS PRN IV PAIN Last administered on 02/18/17 08:44; Start 02/15/17 at 15:30 Dextrose/Sodium Chloride 1,000 ml @ 75 mls/hr [id number] IV Last administered on 02/17/17 19:49; Start 02/16/17 at 15:45; Stop 02/18/17 at 10:44; Status DC Multi-Ingredient Mouthwash/Gargle (Magic Mouthwash) 10 ml PRN QID PRN PO MOUTH PAIN; Start 02/16/17 at 16:00 Nystatin 5 ml [id number] Last administered on 02/18/17 08:30; Start at 17:00 Levofloxacin/ Dextrose 100 ml @ 100 mls/hr 1X ONCE IV Last administered on 15:15; Start 02/17/17 at 12:00; Stop 02/17/17 at 12:59; Status DC Ringer's Solution 1,000 ml @ 50 mls/hr Q20H IV Last administered on 02/17/17 14:16; Start 02/17/17 at 07:47; Stop 02/17/17 at 19:46; Status DC Propofol 20 ml @ As Directed STK-MED ONCE IV ; Start 02/17/17 at 15:39; Stop at 15:40; Status DC Lidocaine HCl (Lidocaine Pf 2% Vial) 5 ml STK-MED ONCE .ROUTE ; Start 02/17/17 at 15:39; Stop 02/17/17 at 15:40; Status DC Fentanyl Citrate (Fentanyl 2ml Vial) 100 mcg STK-MED ONCE .ROUTE ; Start at 16:14; Stop 02/17/17 at 16:15; Status DC Hydralazine HCl (Apresoline) 10 mg PRN Q4HRS PRN IVP ELEVATED BP, SEE COMMENTS Last administered on 02/17/17t 18:25; Start 02/17/17 at 18:30 Potassium Chloride/Sodium Chloride 1,000 ml @ 75 mls/hr [id number] IV ; Start at 11:30 Amlodipine Besylate (Norvasc) 10 mg DAILY PO ; Start 02/18/17 at 11:30 Metoclopramide HCl (Reglan) 5 mg PRN Q6HRS PRN PO NAUSEA/VOMITING; Start at 10:45 Active Scripts Active Prednisone 10 Mg Tablet 10 Mg PO DAILY Metoprolol Tartrate 25 Mg Tablet 25 Mg PO BID 30 Days Mucinex (Guaifenesin) 600 Mg Tablet.er 1,200 Mg PO BID 7 Days Doxycycline Hyclate 100 Mg Tablet 100 Mg PO BID 5 Days Amlodipine Besylate 10 Mg Tablet 10 Mg PO DAILY 30 Days Reported Acetaminophen 500 Mg Tablet 325 Mg PO PRN Q4HRS PRN Colace (Docusate Sodium) 100 Mg Capsule 100 Mg PO DAILY Novolog Flexpen (Insulin Aspart) 100 Unit/1 Ml Insuln.pen 1 Unit SQ Oxycontin (Oxycodone HCl) 10 Mg Tab.er.12h 10 Mg PO BID Vitals/I & O Vital Sign - Last 24 Hours 02/17/17 02/17/17 02/17/17 02/17/17 14:29 15:28 16:03 16:12 Temp 98.7 97.5 98.7 97.5 Pulse 81 113 103 Resp 20 16 20 B/P (MAP) 183/111 175/95 Pulse Ox 100 100 100 O2 Delivery Room Air Nasal Cannula Nasal Cannula O2 Flow Rate 5 2 02/17/17 02/17/17 02/17/17 02/17/17 16:34 16:40 16:42 18:25 Temp 98.2 98.2 Pulse 92 87 87 Resp 20 20 B/P (MAP) 170/85 174/94 (120) 174/94 Pulse Ox 100 98 98 O2 Delivery Room Air Room Air Room Air 02/17/17 02/17/17 02/17/17 02/17/17 19:00 19:33 20:00 23:00 Temp 98.9 98.9 98.9 98.9 Pulse 90 91 Resp 18 18 B/P (MAP) 171/86 (114) 165/85 (111) Pulse Ox 100 98 O2 Delivery Room Air Room Air Room Air Room Air 02/18/17 02/18/17 02/18/17 02/18/17 03:00 07:00 08:00 08:24 Temp 98.6 98.7 98.6 98.7 Pulse 82 97 Resp 18 18 B/P (MAP) 165/84 (111) 169/97 (121) Pulse Ox 99 99 97 O2 Delivery Room Air Room Air Room Air Room Air 02/18/17 02/18/17 10:40 10:57 Temp 98.6 98.6 Pulse 81 Resp 20 B/P (MAP) 165/89 (114) Pulse Ox 100 O2 Delivery Room Air Room Air Intake and Output 02/18/17 02/18/17 02/19/17 14:59 22:59 06:59 Intake Total 60 ml Output Total 150 ml Balance -90 ml Problem List Problems Medical Problems: (1) Dysphagia Status: Acute Assessment Oropharyngeal dysphagia- S/p PEG, tolerating feedings, CPM MARIA ESTHER CEDILLO MD Feb 18, 2017 12:34
[2017-02-18] MEDS: POTASSIUM CL 40MEQ IN 0.9%NACL 1,000 ML IV SCH (12:35)
[2017-02-18] MEDS: amLODIPine BESYLATE 10 MG TABLET PO SCH (12:36)
[2017-02-18] MEDS: HEPARIN PF for SUB-Q USE 5,000 UNIT/0.5 ML VIAL. SQ SCH ×3 (14:00→20:49)
[2017-02-18 15:51] VITALS: BP 156/82
[2017-02-18 19:51] VITALS: BP 163/84
--- NOTE | 2017-02-18 22:30 | PN ---
DATE: 02/18/2017 SUBJECTIVE: The patient is resting, slightly propped up in bed, in no apparent distress. He is awake, alert, continued to have some pain in his throat, but he is able to walk today. Has had his gastrostomy tube placed successfully yesterday and is started on tube feeding at 30 mL per hour with water flushes. He did have some high gastric residual yesterday. PHYSICAL EXAMINATION: GENERAL: When I examined him today, he looked well and was clearly in no apparent respiratory distress, pale, but no jaundice, cyanosis, or thyromegaly. No jugular venous distention. No limb edema. VITAL SIGNS: His heart rate was 97, blood pressure 169/97, temperature was 98.7, respiratory rate was 18 and oxygen saturation was 99%. HEAD, EYES, EARS, NOSE AND THROAT: Showed normocephalic, atraumatic. NECK: Supple. HEART: Showed normal first and second heart sounds with no gallop, rub or murmur. CHEST: Clear to auscultation. No crepitation or rhonchi. ABDOMEN: Slightly distended, soft. Gastrostomy tube in place. There is no guarding or rigidity. No organomegaly. All hernial orifices intact. Bowel sounds normal. NEUROLOGIC: He is awake, alert, responding appropriately. Cranial nerves intact. He moves extremities without difficulty. His intake over the last 24 hours was 160, output was 1465. LABORATORY DATA: As of this morning showed a serum sodium 131, potassium 3.7, chloride 97, bicarbonate 26, anion gap of 8, BUN 10, creatinine 1.2, estimated GFR was 72 mL per minute. His glucose was 198, calcium was 9.1, total protein 7.9, albumin 2.5. Total bilirubin, AST, ALT, alkaline phosphatase were normal. ASSESSMENT: Stage 4 squamous cell carcinoma with the supraglottic larynx; dysphagia, status post gastrostomy tube placement; hypertension, for which we start him on amlodipine; high gastric residual, for which we start him on Reglan; hyponatremia; and hypokalemia. PLAN: I will switch to the normal saline with potassium chloride and repeat all his lab works tomorrow. Hopefully, we will discharge him back to [facility] on Monday. BLAYNE WAKEFIELD MD DR: Geraldo JOB#: [id number] / [id number]
[2017-02-18 23:49] VITALS: BP 164/89
[2017-02-19] MEDS: POTASSIUM CL 40MEQ IN 0.9%NACL 1,000 ML IV SCH (02:32)
[2017-02-19 03:20] VITALS: BP 161/84
[2017-02-19 04:52] LABS: HEMATOCRIT 30.9 % (39.0-53.0); HEMOGLOBIN 10.1 g/dL (13.0-17.5); RED BLOOD COUNT 4.09 x10^6/uL (4.30-5.70); RED CELL DISTRIBUTION WIDTH 18.7 % (11.5-14.5); WHITE BLOOD COUNT 5.3 x10^3/uL (4.0-11.0)
[2017-02-19 05:10] LABS: ALBUMIN 2.2 g/dL (3.4-5.0); ALBUMIN/GLOBULIN RATIO 0.4 (1.0-1.7); CALCIUM 8.8 mg/dL (8.5-10.1); CREATININE 1.3 mg/dL (0.7-1.3); GFR 66.2; POTASSIUM 4.2 mmol/L (3.5-5.1); TOTAL BILIRUBIN 0.4 mg/dL (0.2-1.0); TOTAL PROTEIN 7.2 g/dL (6.4-8.2)
[2017-02-19] MEDS: HEPARIN PF for SUB-Q USE 5,000 UNIT/0.5 ML VIAL. SQ SCH ×3 (05:46→20:48)
[2017-02-19 06:50] VITALS: BP 151/78
[2017-02-19] MEDS: IPRATRPIUM/ALBUTEROL 0.5/2.5MG 3 ML NEBU. NEB SCH ×4 (07:28→19:22)
[2017-02-19] MEDS: NYSTATIN 100,000 UNITS/ML 5 ML ORAL.SUSP. SWSW SCH ×4 (08:54→20:42)
[2017-02-19] MEDS: amLODIPine BESYLATE 10 MG TABLET PO SCH (08:54)
--- NOTE | 2017-02-19 10:20 | PN ---
DATE: 02/19/2017 DATE OF SERVICE: 02/19/2017 SUBJECTIVE: The patient is resting, slightly propped up in bed, in no apparent distress. On questioning him, he stated he is hungry. He is tolerating his tube feedings. He is now up to goal of 50 mL per hour. His serum sodium and potassium were corrected with sodium went up to 135 and potassium up to 4.2. Nursing staff did not voice any concern and stated that he had an uneventful night. OBJECTIVE: PHYSICAL EXAMINATION: GENERAL: When I examined him, he looked pale, cachectic, not jaundiced, cyanosed, or thyromegaly. No jugular distention. No limb edema. VITAL SIGNS: His heart rate was 86, blood pressure 151/78, temperature was 98.7, respiratory rate was 18 and oxygen saturation was 99% on room air. HEAD, EYES, EARS, NOSE AND THROAT: Showed normocephalic, atraumatic. NECK: Supple. Tracheostomy tube in place. He has also large mass in the left side of the neck consistent with metastatic squamous carcinoma of the larynx. HEART: Showed normal first and second heart sounds with no gallop, rub or murmur. CHEST: Clear to auscultation. No crepitation or rhonchi. ABDOMEN: Scaphoid, soft with gastrostomy tube in place. There is no guarding or rigidity. No organomegaly. All hernial orifices intact. Bowel sounds normal. NEUROLOGIC: He was awake, alert, responding appropriately. Cranial nerves intact. He moves extremities without difficulty. His intake over the last 24 hours was 835, output was 1500. LABORATORY DATA: As of this morning showed a serum sodium 135, potassium 4.2, chloride 101, bicarbonate 26, anion gap of 8, BUN 9, creatinine was 1.3, estimated GFR was 66 mL per minute, his glucose 152, calcium was 8.8. Total bilirubin, AST, ALT, alkaline phosphatase were normal. Total protein was 7.2, albumin was 2.2. His white cell count was 5300, hemoglobin 10, hematocrit 30, MCV 76, and platelet count of 309,000. ASSESSMENT: 1. Dysphagia due to radiation therapy. 2. Dyspnea, however, his chest x-ray is normal. 3. Stage IV squamous cell carcinoma supraglottic laryngeal cancer diagnosed in 2017. 4. The patient is status post percutaneous endoscopic gastrostomy tube placement. The patient is tolerating his tube feeding. 5. Hypertension, so far optimally controlled. 6. Hyponatremia and hypokalemia has resolved. PLAN: My plan is to discontinue the IV fluid. I will start him on hydralazine 25 mg 3 times a day scheduled to have a better control of his blood pressure. As far as his metoclopramide will be scheduled every 6 hours as he has high gastric residual. BLAYNE WAKEFIELD MD DR: SEVERO/marjan JOB#: [id number] / [id number]
[2017-02-19] MEDS ORDERED: METOCLOPRAMIDE HCL 10 MG/10 ML SOLUTION. PO SCH (10:30)
[2017-02-19 11:05] VITALS: BP 143/76
[2017-02-19] MEDS: hydrALAZINE 25 MG TABLET FT SCH ×3 (11:56→20:43)
[2017-02-19] MEDS: METOCLOPRAMIDE HCL 10 MG/10 ML SOLUTION. PO SCH ×4 (11:56→20:42)
[2017-02-19 15:44] VITALS: BP 149/84
[2017-02-19 19:43] VITALS: BP 156/84
[2017-02-19 23:08] VITALS: BP 162/81
[2017-02-20 03:16] VITALS: BP 149/85
[2017-02-20] MEDS: HEPARIN PF for SUB-Q USE 5,000 UNIT/0.5 ML VIAL. SQ SCH ×2 (05:44→13:54)
[2017-02-20 05:46] LABS: CALCIUM 9.3 mg/dL (8.5-10.1); CREATININE 1.3 mg/dL (0.7-1.3); GFR 66.2
[2017-02-20 07:00] VITALS: BP 159/87
[2017-02-20] MEDS: IPRATRPIUM/ALBUTEROL 0.5/2.5MG 3 ML NEBU. NEB SCH ×2 (08:41→12:19)
[2017-02-20] MEDS: NYSTATIN 100,000 UNITS/ML 5 ML ORAL.SUSP. SWSW SCH ×2 (08:59→13:43)
[2017-02-20] MEDS: METOCLOPRAMIDE HCL 10 MG/10 ML SOLUTION. PO SCH ×2 (08:59→13:43)
[2017-02-20] MEDS: amLODIPine BESYLATE 10 MG TABLET PO SCH (09:00)
[2017-02-20] MEDS: hydrALAZINE 25 MG TABLET FT SCH ×2 (09:00→13:44)
--- NOTE | 2017-02-20 09:33 | PDOC ---
Subjective: Subjective: Denies pain. Assumes PEG working - "you'll have to ask them." Had BM. Objective: Vital Signs: Vital Signs Date Time Temp Pulse Resp B/P (MAP) Pulse Ox O2 Delivery O2 Flow Rate FiO2 02/20/17 09:00 80 159/87 02/20/17 08:43 100 Room Air 02/20/17 07:00 97.7 16 97.7 Labs: Laboratory Tests Test 02/19/17 23:06 02/20/17 06:13 Glucose (Fingerstick) 145 mg/dL (70-99) 140 mg/dL (70-99) Imaging: EGD/PEG 02/15/17 E--able to intubate with some difficulty. Esophagus normal. Too crowded in pharynx to appreciate mass per se. G--Normal D--Normal bulb. --20F g-tube placed in old tract. Tolerated well. IMP: successful PEG Laryngeal tumor. PE: GEN: NAD, up to chair, thin LUNGS: trach HEART: RRR ABD: S/ND/NT, PEG site clean/dry, feeds currently running NEURO/PSYCH: A & O 3 A/P: Stage IV SCC of larynx w/ mets S/p tracheostomy Dysphagia s/p PEG 02/15 -- PEG functioning. Tells me had BM, no stools charted. Will add Miralax PRN. SHA CORDERO Feb 20, 2017 09:33
[2017-02-20] MEDS ORDERED: POLYETHYLENE GLYCOL 3350 17 GM PACKET. PEG PRN (09:45)
[2017-02-20 10:52] VITALS: BP 149/77
--- NOTE | 2017-02-20 12:29 | DS ---
DATE OF DISCHARGE: 02/20/2017 HISTORY OF PRESENT ILLNESS: The patient is a 71-year-old -[place] male patient who was admitted on 02/15/2017. He complained of pain in his mouth and difficulty swallowing. It has been going on for the last 2 days. He has been getting radiation treatment every Monday and has an appointment to assess whether he needs further treatment. 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 He has had a tracheostomy tube and used to have a PEG tube that was removed. He also complained of shortness of breath. Denied any fever, chills, nausea or vomiting. He was extensively investigated. His chest x-ray was normal and we had a discussion with him regarding placement of another feeding tube or hospice and he opted for placement of a percutaneous endoscopic gastrostomy tube that was placed successfully and we did start him on tube feeding, advanced to the goal and tolerated very well. His blood pressure continued to be high so I added hydralazine and he did very well. He was seen yesterday by the physical and occupational therapy and has been up and about without difficulty. His blood pressure is much better controlled, although not optimally yet. On questioning him today, he denied any complaint. PHYSICAL EXAMINATION: GENERAL: When I examined him, he looked pale, cachectic, but not jaundiced, cyanosis or thyromegaly. No jugular venous distension. No limb edema. VITAL SIGNS: His heart rate was 78, blood pressure 149/77, temperature was 97.9, respiratory rate was 18 and oxygen saturation was 96%. HEENT: Examination of the head, eyes, ears, nose and throat showed normocephalic, atraumatic. NECK: Supple with tracheostomy tube in place. HEART: Showed normal first and second heart sounds, with no gallop, rub or murmur. CHEST: Clear to auscultation. No crepitation or rhonchi. ABDOMEN: Scaphoid, soft with gastrostomy tube in place. There is no guarding or rigidity. No organomegaly. All hernial orifices intact. Bowel sounds normal. NEUROLOGIC: He was awake, alert, responding appropriately. Cranial nerves intact. He moves extremities without difficulty, ambulates without assistance or assistive devices, though he has marked muscle wasting and weakness. His intake over the last 24 hours was 835, output was 1500. LABORATORY DATA: His lab work as of this morning showed a serum sodium of 135, potassium 4, chloride 99, bicarbonate 26, anion gap of 9, BUN 10, creatinine 1.3, estimated GFR was 66 mL per minute, his glucose was 111 and calcium was 9.3. Total protein was 7.2, albumin 2.2. White cell count was 5300, hemoglobin 10, hematocrit 30, MCV 76 and platelet count 309,000. His prothrombin time, INR and aPTT were normal. DISCHARGE MEDICATIONS: The patient was discharged back to [facility] to continue on hydralazine 25 mg 3 times a day, metoclopramide 5 mg every 6 hours. He should continue also his Tylenol 500 mg every 4 hours, amlodipine 10 mg once a day, docusate sodium 100 mg twice a day and Mucinex 600 mg, takes 2 tablets twice a day. He is on NovoLog insulin as insulin sliding scale, metoprolol tartrate 25 mg p.o. b.i.d., oxycodone 10 mg every 4 hours and prednisone 10 mg daily. FINAL DISCHARGE DIAGNOSES: 1. Dysphagia due to do radiation treatment, status post percutaneous endoscopic gastrostomy tube. Dysphagia resolved. 2. His chest x-ray is normal. 3. Stage IV squamous cell carcinoma or supraglottic laryngeal cancer diagnosed in 2016. 4. He is status post percutaneous endoscopic gastrostomy tube placement, tolerating his tube feeding very well. 5. Hypertension, much better controlled. 6. Hyponatremia and hypokalemia, resolved. DICTATION ENDS HERE. BLAYNE WAKEFIELD MD DR: SEVERO/marjan JOB#: [id number] / [id number]
[2017-02-20] MEDS ORDERED: ACETAMINOPHEN 325 MG TABLET. PO PRN (12:30)
[2017-02-20] MEDS ORDERED: DOCUSATE SODIUM 100 MG CAPSULE. PO SCH (13:00)
[2017-02-20] MEDS ORDERED: METOPROLOL TART IMMED RELEASE 25 MG TABLET. PO SCH (13:00)
[2017-02-20] MEDS ORDERED: predniSONE 10 MG TABLET PO SCH (13:00)
[2017-02-20 13:44] VITALS: BP 149/77
[2017-02-20] MEDS ORDERED: INSULIN ASPART 300 UNITS/3 ML INSULN.PEN SQ SCH (14:00)
--- NOTE | 2017-02-20 17:28 | PDOC ---
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 He declined radiation therapy at that time. He had evidence of enlarging mass in the neck in December 2016 and he was started on radiation therapy by Dr. Beavers. Appreciate consult by Dr. Beavers. He is not a candidate for chemotherapy because of poor functional status. I agree with hospice after palliative XRT. 2. Dyspnea. Chest x-ray performed on 02/15/2017 does not reveal any acute cardiopulm process. His BNP is elevated. Continue management per Dr. Bradshaw. 3. 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 Appreciate GI consultation. s/p PEG placement. Comment Review of Relevant I have reviewed the following items rell (where applicable) has been applied. Labs Laboratory Tests Test 02/19/17 03:50 02/19/17 06:37 02/19/17 23:06 02/20/17 04:00 White Blood Count 5.3 x10^3/uL (4.0-11.0) Red Blood Count 4.09 x10^6/uL (4.30-5.70) Hemoglobin 10.1 g/dL (13.0-17.5) Hematocrit 30.9 % (39.0-53.0) Mean Corpuscular Volume 76 fL (79-100) Mean Corpuscular Hemoglobin 25 pg (25-35) Mean Corpuscular Hemoglobin Concent 33 g/dL (31-37) Red Cell Distribution Width 18.7 % (11.5-14.5) Platelet Count 309 x10^3/uL (140-400) Sodium Level 135 mmol/L (136-145) 134 mmol/L (136-145) Potassium Level 4.2 mmol/L (3.5-5.1) 4.0 mmol/L (3.5-5.1) Chloride Level 101 mmol/L (98-107) 99 mmol/L (98-107) Carbon Dioxide Level 26 mmol/L (21-32) 26 mmol/L (21-32) Anion Gap 8 (6-14) 9 (6-14) Blood Urea Nitrogen 9 mg/dL (8-26) 10 mg/dL (8-26) Creatinine 1.3 mg/dL (0.7-1.3) 1.3 mg/dL (0.7-1.3) Estimated GFR (Cockcroft-Gault) 66.2 66.2 BUN/Creatinine Ratio 7 (6-20) Glucose Level 152 mg/dL (70-99) 111 mg/dL (70-99) Calcium Level 8.8 mg/dL (8.5-10.1) 9.3 mg/dL (8.5-10.1) Total Bilirubin 0.4 mg/dL (0.2-1.0) Aspartate Amino Transf (AST/SGOT) 15 U/L (15-37) Alanine Aminotransferase (ALT/SGPT) 11 U/L (16-63) Alkaline Phosphatase 123 U/L (46-116) Total Protein 7.2 g/dL (6.4-8.2) Albumin 2.2 g/dL (3.4-5.0) Albumin/Globulin Ratio 0.4 (1.0-1.7) Glucose (Fingerstick) 134 mg/dL (70-99) 145 mg/dL (70-99) Test 02/20/17 06:13 02/20/17 12:33 Glucose (Fingerstick) 140 mg/dL (70-99) 166 mg/dL (70-99) Laboratory Tests Test 02/19/17 23:06 02/20/17 04:00 02/20/17 06:13 02/20/17 12:33 Glucose (Fingerstick) 145 mg/dL (70-99) 140 mg/dL (70-99) 166 mg/dL (70-99) Sodium Level 134 mmol/L (136-145) Potassium Level 4.0 mmol/L (3.5-5.1) Chloride Level 99 mmol/L (98-107) Carbon Dioxide Level 26 mmol/L (21-32) Anion Gap 9 (6-14) Blood Urea Nitrogen 10 mg/dL (8-26) Creatinine 1.3 mg/dL (0.7-1.3) Estimated GFR (Cockcroft-Gault) 66.2 Glucose Level 111 mg/dL (70-99) Calcium Level 9.3 mg/dL (8.5-10.1) Medications Current Medications Ondansetron HCl (Zofran) 4 mg PRN Q8HRS PRN IV NAUSEA/VOMITING; Start 02/15/17 at 08:00; Stop 02/16/17 at 07:59; Status DC Dextrose/Sodium Chloride 1,000 ml @ 75 mls/hr 1X ONCE IV Last administered on 02/15/17 08:31; Start 02/15/17 at 08:00; Stop 02/15/17 at 21:19; Status DC Heparin Sodium (Porcine) (Heparin Sq) 5,000 unit Q8HRS SQ Last administered on 02/16/17 05:17; Start 02/15/17 at 14:00; Stop 02/18/17 at 14:35; Status DC Albuterol/ Ipratropium (Duoneb) 3 ml RTQID NEB Last administered on 02/20/17 12:19; Start 02/15/17 at 16:00; Stop 02/20/17 at 16:50; Status DC Fentanyl Citrate (Fentanyl 2ml Vial) 50 mcg Q3HRS PRN IV PAIN Last administered on 02/18/17 08:44; Start 02/15/17 at 15:30; Stop 02/20/17 at 16:50 ; Status DC Dextrose/Sodium Chloride 1,000 ml @ 75 mls/hr [id number] IV Last administered on 02/17/17 19:49; Start 02/16/17 at 15:45; Stop 02/18/17 at 10:44; Status DC Multi-Ingredient Mouthwash/Gargle (Magic Mouthwash) 10 ml PRN QID PRN PO MOUTH PAIN; Start 02/16/17 at 16:00; Stop 02/20/17 at 16:50; Status DC Nystatin 5 ml [id number] Last administered on 02/20/17 13:43; Start at 17:00; Stop 02/20/17 at 16:50; Status DC Levofloxacin/ Dextrose 100 ml @ 100 mls/hr 1X ONCE IV Last administered on 15:15; Start 02/17/17 at 12:00; Stop 02/17/17 at 12:59; Status DC Ringer's Solution 1,000 ml @ 50 mls/hr Q20H IV Last administered on 02/17/17 14:16; Start 02/17/17 at 07:47; Stop 02/17/17 at 19:46; Status DC Propofol 20 ml @ As Directed STK-MED ONCE IV ; Start 02/17/17 at 15:39; Stop at 15:40; Status DC Lidocaine HCl (Lidocaine Pf 2% Vial) 5 ml STK-MED ONCE .ROUTE ; Start 02/17/17 at 15:39; Stop 02/17/17 at 15:40; Status DC Fentanyl Citrate (Fentanyl 2ml Vial) 100 mcg STK-MED ONCE .ROUTE ; Start at 16:14; Stop 02/17/17 at 16:15; Status DC Hydralazine HCl (Apresoline) 10 mg PRN Q4HRS PRN IVP ELEVATED BP, SEE COMMENTS Last administered on 02/17/17 18:25; Start 02/17/17 at 18:30; Stop 02/19/17 at 09:33; Status DC Potassium Chloride/Sodium Chloride 1,000 ml @ 75 mls/hr [id number] IV Last administered on 02/19/17 02:32; Start 02/18/17 at 11:30; Stop 02/19/17 at 09:33 ; Status DC Amlodipine Besylate (Norvasc) 10 mg DAILY PO Last administered on 02/20/17 09: 00; Start 02/18/17 at 11:30; Stop 02/20/17 at 16:50; Status DC Metoclopramide HCl (Reglan) 5 mg PRN Q6HRS PRN PO NAUSEA/VOMITING Last administered on 02/18/17 12:36; Start 02/18/17 at 10:45; Stop 02/19/17 at 09:33 ; Status DC Heparin Sodium (Porcine) (Heparin Sq) 5,000 unit Q8HRS SQ Last administered on 02/20/17 13:54; Start 02/18/17 at 15:00; Stop 02/20/17 at 16:50; Status DC Metoclopramide HCl (Reglan) 5 mg QIDACHS PO ; Start 02/19/17 at 10:30; Stop 02/19/17 at 10:30; Status DC Hydralazine HCl (Apresoline) 25 mg TID FT Last administered on 02/20/17 13:44 ; Start 02/19/17 at 10:00; Stop 02/20/17 at 16:50; Status DC Metoclopramide HCl (Reglan) 5 mg QID PO Last administered on 02/20/17 13:43; Start 02/19/17 at 10:00; Stop 02/20/17 at 16:50; Status DC Polyethylene Glycol (miraLAX PACKET) 17 gm PRN DAILY PRN PEG CONSTIPATION; Start 02/20/17 at 09:45; Stop 02/20/17 at 16:50; Status DC Acetaminophen (Tylenol) 325 mg PRN Q4HRS PRN PO PAIN; Start 02/20/17 at 12:30; Stop 02/20/17 at 16:50; Status DC Amlodipine Besylate (Norvasc) 10 mg DAILY PO ; Start 02/21/17 at 09:00; Status UNV Docusate Sodium (Colace) 100 mg DAILY PO ; Start 02/20/17 at 13:00; Stop at 16:50; Status DC Guaifenesin (Mucinex) 1,200 mg BID PO ; Start 02/20/17 at 13:00; Stop 02/20/17 at 16:50; Status DC Insulin Aspart (NovoLOG) 1 units TID SQ ; Start 02/20/17 at 14:00; Status UNV Metoprolol Tartrate (Lopressor) 25 mg BID PO ; Start 02/20/17 at 13:00; Stop at 16:50; Status DC Prednisone (Prednisone) 10 mg DAILY PO ; Start 02/20/17 at 13:00; Stop 02/20/17 at 16:50; Status DC Active Scripts Active Prednisone 10 Mg Tablet 10 Mg PO DAILY Metoprolol Tartrate 25 Mg Tablet 25 Mg PO BID 30 Days Mucinex (Guaifenesin) 600 Mg Tablet.er 1,200 Mg PO BID 7 Days Doxycycline Hyclate 100 Mg Tablet 100 Mg PO BID 5 Days Amlodipine Besylate 10 Mg Tablet 10 Mg PO DAILY 30 Days Reported Acetaminophen 500 Mg Tablet 325 Mg PO PRN Q4HRS PRN Colace (Docusate Sodium) 100 Mg Capsule 100 Mg PO DAILY Novolog Flexpen (Insulin Aspart) 100 Unit/1 Ml Insuln.pen 1 Unit SQ Oxycontin (Oxycodone HCl) 10 Mg Tab.er.12h 10 Mg PO BID Vitals/I & O Vital Sign - Last 24 Hours 02/19/17 02/19/17 02/19/17 02/19/17 19:21 19:43 20:00 20:43 Temp 99.1 99.1 Pulse 85 85 Resp 20 B/P (MAP) 156/84 (108) 156/84 Pulse Ox 96 98 O2 Delivery Room Air Room Air Room Air 02/19/17 02/20/17 02/20/17 02/20/17 23:08 03:16 07:00 08:00 Temp 98.8 98.5 97.7 98.8 98.5 97.7 Pulse 92 90 80 Resp 20 20 16 B/P (MAP) 162/81 (108) 149/85 (106) 159/87 (111) Pulse Ox 98 98 95 O2 Delivery Room Air Room Air Room Air Room Air 02/20/17 02/20/17 02/20/17 02/20/17 08:43 09:00 09:00 10:52 Temp 97.9 97.9 Pulse 80 80 78 Resp 18 B/P (MAP) 159/87 159/87 149/77 (101) Pulse Ox 100 96 O2 Delivery Room Air Room Air 02/20/17 02/20/17 12:20 13:44 Pulse 78 B/P (MAP) 149/77 O2 Delivery Room Air Intake and Output 02/20/17 02/20/17 02/21/17 15:00 23:00 07:00 Intake Total 15 ml Balance 15 ml Nutrition Consultation Dietary Evaluation: Comments: Continue TF as ordered: pt tolerating at goal rate Expected Outcomes/Goals: to meet nutrition needs via PEG TF - met, goal ongoing Malnutrition Findings: Body Fat Depletion (Non Severe: Mild Depletion Weight Status: Underweight LEONOR BOWERS MD Feb 20, 2017 17:28
[2017-02-21] MEDS ORDERED: amLODIPine BESYLATE 10 MG TABLET PO SCH (09:00)
== END 2017-02-20 15:25 | disposition home or self-care (01) | DRG 146 ==
LOC: ER 06:15 → 2 SOUTH 07:30 → 6 SOUTH 09:11
PROVIDERS: ADMIT Internal Medicine; ATTEND Internal Medicine
PROC: 0DH63UZ Insertion of Feeding Device into Stomach, Percutaneous Approach (ICD-10-PCS; principal; 2017-02-17 15:00)
DX: C32.1 Malignant neoplasm of supraglottis (principal); E43 Unspecified severe protein-calorie malnutrition; C77.9 Secondary and unspecified malignant neoplasm of lymph node, unspecified; R13.12 Dysphagia, oropharyngeal phase; Z93.0 Tracheostomy status; C78.00 Secondary malignant neoplasm of unspecified lung; T66.XXXA Radiation sickness, unspecified, initial encounter; C14.0 Malignant neoplasm of pharynx, unspecified; E87.1 Hypo-osmolality and hyponatremia; Z68.1 Body mass index [BMI] 19.9 or less, adult; C32.9 Malignant neoplasm of larynx, unspecified; E87.6 Hypokalemia; F10.10 Alcohol abuse, uncomplicated; F32.9 Major depressive disorder, single episode, unspecified; F43.10 Post-traumatic stress disorder, unspecified; G40.909 Epilepsy, unspecified, not intractable, without status epilepticus; I10 Essential (primary) hypertension; K12.30 Oral mucositis (ulcerative), unspecified; K20.9 Esophagitis, unspecified; R09.02 Hypoxemia; M54.2 Cervicalgia; R91.8 Other nonspecific abnormal finding of lung field; R59.0 Localized enlarged lymph nodes; Y84.2 Radiological procedure and radiotherapy as the cause of abnormal reaction of the patient, or of later complication, without mention of misadventure at the time of the procedure; Z82.49 Family history of ischemic heart disease and other diseases of the circulatory system; Z85.21 Personal history of malignant neoplasm of larynx; Z87.891 Personal history of nicotine dependence
CPT/HCPCS: 31720; 36415; 70490; 71010; 80048; 80053; 80076; 81001; 82553; 82962; 83735; 83880; 84484; 85025; 85027; 85610; 85730; 87641; 93005; 94640; 94760; 96360; 99285; J0360; J1956; J2704; J3010; J3480; J7120; J7620; J8597; 92610; J2001